=== PATIENT | female | born 2000 | race Caucasian/White ===

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

== ENCOUNTER → 2022-07-08 16:53 | Outpatient (CLI) | payer BC, SELFPAY ==
[2022-07-08 14:46] LABS: Coronavirus 19, PCR Not Detected (NotDetected); Influenza B, PCR Not Detected (NotDetected)
[2022-07-08 15:56] LABS: Influenza A, PCR Detected (NotDetected)
== END ==
PROVIDERS: PCP Student in an Organized Health Care Education/Training Program; Visit Provider Student in an Organized Health Care Education/Training Program
DX: R52 Pain, unspecified (principal); J09.X2 Influenza due to identified novel influenza A virus with other respiratory manifestations
CPT/HCPCS: C9803; U0003; U0005

== ENCOUNTER → 2023-08-19 08:55 | Outpatient (CLI) | payer BC, SELFPAY ==
[2023-08-20 10:05] LABS: Progesterone 4.6 ng/mL (.)
== END ==
PROVIDERS: PCP Physician Assistant; Visit Provider Obstetrics & Gynecology
DX: Z32.00 Encounter for pregnancy test, result unknown (principal)
CPT/HCPCS: 36415; 84144; 84702

== ENCOUNTER → 2023-08-24 07:01 | Outpatient (CLI) | payer BC, SELFPAY ==
[2023-08-24 22:56] LABS: Amphetamine/Metha Screen,Urine Negative ng/ml (<1000)
[2023-08-24 22:57] LABS: Barbiturates Screen,Urine Negative ng/ml (<200)
[2023-08-24 22:58] LABS: Benzodiazepines Screen,Urine Negative ng/ml (<200); Cannabinoid Screen,Urine Negative ng/ml (<50)
[2023-08-24 22:59] LABS: Cocaine Screen,Urine Negative ng/ml (<300)
[2023-08-24 23:00] LABS: Methadone Screen,Urine Negative ng/ml (<300); Opiate Screen,Urine Negative ng/ml (<300)
[2023-08-24 23:01] LABS: Phencyclidine Screen,Urine Negative ng/ml (<25)
[2023-08-30 00:02] LABS: Neisseria gonorrhoeae, NAA Negative (Negative)
== END ==
PROVIDERS: PCP Physician Assistant; Visit Provider Obstetrics & Gynecology
DX: Z34.91 Encounter for supervision of normal pregnancy, unspecified, first trimester (principal); Z3A.01 Less than 8 weeks gestation of pregnancy
CPT/HCPCS: 80307; 87086; 87491; 87591

== ENCOUNTER → 2023-08-30 15:07 | Outpatient (CLI) | payer BC, SELFPAY ==
[2023-08-30 15:29] LABS: Basophils # 0.1 K/mm3 (0-0.2); Basophils % 0.3 % (0.1-2.0); Eosinophils # 0.2 K/mm3 (0.0-0.4); Eosinophils % 1.3 % (0.1-12.0); Hematocrit 44.8 % (37.0-47.0); Hemoglobin 15.2 g/dL (12.2-16.2); Lymphocytes # 2.8 K/mm3 (0.7-4.5); Lymphocytes % 19.4 % (10-50); Mean Corpuscular Hemoglobin 29.6 pg (27.0-31.2); Mean Platelet Volume 8.9 fl (7.4-10.4); Monocytes # 0.6 K/mm3 (0.1-1.0); Neutrophils # 10.7 K/mm3 (1.8-7.8); Platelet Count 263 K/mm3 (142-424); Red Blood Count 5.15 M/mm3 (4.20-5.40); Red Cell Distribution Width 12.8 % (11.5-17.5); White Blood Count 14.3 K/mm3 (4.8-10.8)
[2023-09-01 09:48] LABS: Rapid Plasma Reagin Ab Titer Non Reactive titer (NonRea<1:1)
[2023-09-03 08:06] LABS: HIV Screen 4th Generation wRfx Non Reactive; Hepatitis B Surface Antigen Negative; Hepatitis C Antibody Non Reactive
== END ==
LOC: LAB 15:08
PROVIDERS: PCP Nurse Practitioner Family; Visit Provider Obstetrics & Gynecology
DX: Z34.91 Encounter for supervision of normal pregnancy, unspecified, first trimester (principal); Z3A.08 8 weeks gestation of pregnancy
CPT/HCPCS: 36415; 85025; 86593; 86703; 86762; 86850; 87340; 87380; G0432

== ENCOUNTER 2023-11-21 12:47 | Outpatient (CLI) | payer BC, SELFPAY ==
--- NOTE | 2023-11-21 12:47 | US_ITS ---
PROCEDURE: US OB /MATERNAL DETAIL CLINICAL INDICATION: 20 wk+Anatomy Scan-US OB Complete COMPARISON: No exams were available for comparison FINDINGS: Transabdominal sonographic images of the pelvis were obtained. From her established due date she is 20 weeks 1 day. Single viable intrauterine gestation. Cephalic position. Placenta: Posteriorplacenta grade 1. There is an average amount of fluid. The cervix appears satisfactory. Closed and measuring 3.2 cm in length. Complete survey performed and was unremarkable on the submitted images as in PACS. No discrete anomalies identified on survey imaging by technologist. Active fetus. Three-vessel cord with satisfactory umbilical cord insertion. 4- chamber heart noted. Situs, aortic arch, LVOT, RVOT, three-vessel view appear normal. Survey of brain & ventricles Unremarkable. Cerebellum, thalamus, choroid plexus, cisterna magna appear normal. Face and neck survey unremarkable. Profile, nasion, lips and nose appeared normal. Diaphragm and chest views unremarkable. Abdomen: Both kidneys noted and unremarkable. Stomach and bladder noted and satisfactory. Spine: Survey of the spine satisfactory with no anomalies identified nor imaged. Cervical, thoracic, lower spine appear normal. Both arms and legs noted. Amniotic Fluid: Adequate. Measurements: Average ultrasound age 20weeks 2days. Estimated due date by ultrasound age 0804/07/2024. Estimated weight 333g BPD = 20weeks 2days HC = 20weeks 1day AC = 20weeks 4days FL = 19weeks 5days Growth Percentile= 43 Heart Rate = 144bpm Cerebellum = 20weeks Humerus = 21weeks 1day HC/AC is 1.15 FL/AC is 0.2 IMPRESSION: 1. Viable fetus initially in the breech presentation then turned a cephalic. Placenta is anterior grade 1. 2. The fluid is within normal limits. 3. Anatomical scan appears normal. 4. Cardiac exam appears normal but would repeat in 2-4 weeks due to position. 5. biometry is consistent with dates. Dictated by: Greg Baeza MD 11/21/2023 16:52 Greg Baeza MD in [place] 11/21/2023 16:52
== END 2023-11-21 23:59 ==
LOC: RAD 12:47
PROVIDERS: PCP Nurse Practitioner Family; Visit Provider Obstetrics & Gynecology
DX: O26.892 Other specified pregnancy related conditions, second trimester (principal); Z3A.20 20 weeks gestation of pregnancy; R79.89 Other specified abnormal findings of blood chemistry; Z20.828 Contact with and (suspected) exposure to other viral communicable diseases
CPT/HCPCS: 76811

== ENCOUNTER 2023-12-19 12:44 | Outpatient (CLI) | payer BC, SELFPAY ==
--- NOTE | 2023-12-19 12:45 | US_ITS ---
PROCEDURE: US OB FOLLOW UP CLINICAL INDICATION: cardiac screening repeat due to position COMPARISON: US US OB /MATERNAL DETAIL from 11/21/2023 FINDINGS: Transabdominal sonographic images of the pelvis were obtained. The following parameters are obtained: From her established due date she is 24weeks 1day Viable fetus in the breech presentation with a posterior placenta grade 1. The cervix measures 3.76 cm. heart rate: 153bpm bpm. Amniotic fluid index: Appears normal. No obvious anomalies evident. stomach, three-vessel cord, four chamber heart, three-vessel view, RVOT, LVOT appear normal. IMPRESSION: 1. Viable fetus in the breech presentation with a posterior placenta grade 1. 2. The fluid is within normal limits. 3. cardiac anatomical scan appears normal. Dictated by: Greg Baeza MD 12/19/2023 16:36 Greg Baeza MD in [facility] 12/19/2023 16:36
== END 2023-12-19 23:59 | disposition home or self-care (01) ==
LOC: RAD 12:45
PROVIDERS: PCP Nurse Practitioner Family; Visit Provider Obstetrics & Gynecology
DX: O26.892 Other specified pregnancy related conditions, second trimester (principal); Z36.83 Encounter for fetal screening for congenital cardiac abnormalities; Z3A.24 24 weeks gestation of pregnancy
CPT/HCPCS: 76816

== ENCOUNTER 2024-01-08 13:09 | Outpatient (CLI) | payer BC, SELFPAY ==
[2024-01-08 13:38] LABS: Basophils # 0.1 K/mm3 (0-0.2); Basophils % 0.5 % (0.1-2.0); Eosinophils # 0.2 K/mm3 (0.0-0.4); Eosinophils % 1.4 % (0.1-12.0); Hematocrit 41.1 % (37.0-47.0); Hemoglobin 13.5 g/dL (12.2-16.2); Lymphocytes # 2.3 K/mm3 (0.7-4.5); Mean Corpuscular HGB Conc 32.8 g/dL (31.8-35.4); Mean Corpuscular Hemoglobin 28.7 pg (27.0-31.2); Mean Corpuscular Volume 87.4 fl (81-99); Mean Platelet Volume 8.9 fl (7.4-10.4); Monocytes # 0.6 K/mm3 (0.1-1.0); Monocytes % 4.3 % (1.7-9.3); Neutrophils # 10.4 K/mm3 (1.8-7.8); Neutrophils % 76.8 % (37.0-80.0); Platelet Count 280 K/mm3 (142-424); Red Cell Distribution Width 13.5 % (11.5-17.5); White Blood Count 13.5 K/mm3 (4.8-10.8)
[2024-01-08 13:46] LABS: Glucose,Fasting 96 mg/dl (74-100)
[2024-01-08 16:36] LABS: Glucose 1 Hour 109 mg/dL (74-100)
== END 2024-01-08 23:59 | disposition home or self-care (01) ==
LOC: LAB 13:10
PROVIDERS: PCP Nurse Practitioner Family; Visit Provider Obstetrics & Gynecology
DX: O26.892 Other specified pregnancy related conditions, second trimester (principal); Z3A.27 27 weeks gestation of pregnancy
CPT/HCPCS: 36415; 82951; 85025

== ENCOUNTER 2024-01-09 14:55 | Outpatient (CLI) | payer BC, SELFPAY ==
[2024-01-09] MEDS: RHO(D) IMMUNE GLOBULIN 1,500 UNIT SYRINGE IM (15:15)
[2024-01-09 15:18] VITALS: BP 135/78; PULSE 94; RESP 18; O2SAT 99
== END 2024-01-09 15:28 | disposition home or self-care (01) ==
LOC: INF 14:56
PROVIDERS: PCP Nurse Practitioner Family; Visit Provider Obstetrics & Gynecology
DX: O26.92 Pregnancy related conditions, unspecified, second trimester (principal); Z29.13 Encounter for prophylactic Rho(D) immune globulin; Z3A.27 27 weeks gestation of pregnancy
CPT/HCPCS: 96372; J2790

== ENCOUNTER 2024-01-30 12:54 | Outpatient (CLI) | payer BC, SELFPAY ==
--- NOTE | 2024-01-30 12:54 | US_ITS ---
PROCEDURE: US OB FOLLOW UP CLINICAL INDICATION: LGA COMPARISON: US US OB /MATERNAL DETAIL from 11/21/2023 US US OB FOLLOW UP from 12/19/2023 FINDINGS: Transabdominal sonographic images of the uterus were obtained. From her established due date she is 30weeks 1day. The following parameters are obtained: Viable Fetus in the cephalic presentation with a posterior placenta grade 1-2. Average ultrasound age is 31weeks 1day Estimated weight 1,624g, 3 lb 9 oz Cervix measures 4.3 cm. Measurements: heart Rate = 169bpm BPD = 31weeks 5days, 81 percentile HC = 31weeks 5days, 57 percentile AC = 30weeks 6days, 64 percentile FL = 30weeks 1day, 34 percentile HC/AC is 1.08 FL/BPD is 0.73 FL/AC is 0.22 57 percentile Amniotic fluid index: 8.77cm, MVP 3.63 cm. No obvious anomalies evident.Kidneys, stomach, bladder, four-chamber heart, three-vessel cord appear normal. IMPRESSION: 1. Viable fetus in the cephalic presentation with a posterior placenta grade 1-2. 2. The fluid is within normal limits with an amniotic fluid index of 8.77 cm, MVP 3.63 cm. 3. There has been good interval growth with the fetus currently 57th percentile. 4. Limited anatomical scan appears normal. Dictated by: Greg Baeza MD 01/30/2024 16:02 Greg Baeza MD in [place] 01/30/2024 16:02
== END 2024-01-30 23:59 | disposition home or self-care (01) ==
LOC: RAD 12:54
PROVIDERS: PCP Nurse Practitioner Family; Visit Provider Obstetrics & Gynecology
DX: O36.63X0 Maternal care for excessive fetal growth, third trimester, not applicable or unspecified (principal); Z3A.30 30 weeks gestation of pregnancy; E66.9 Obesity, unspecified
CPT/HCPCS: 76816

== ENCOUNTER 2024-02-02 16:37 | Emergency (ER) | payer BC, SELFPAY ==
[2024-02-02 16:55] VITALS: BP 133/82; PULSE 95; RESP 18; TEMP 37; O2SAT 100; BMI 39.6
--- NOTE | 2024-02-02 17:00 | EXP.UTC ---
Discharge Plan Disposition Patient Disposition: Home, Self-Care Condition: Good Prescriptions Prescriptions: New mupirocin 2 % ointment 1 applic topical TID 7 Days Qty: 15 0RF No Action Gummies 400 mcg-35 mg- 25 mg-5 mg tablet,chewable 1 tab PO DAILY aspirin [Adult Aspirin Regimen] 81 mg tablet,delayed release (DR/EC) 81 mg PO DAILY promethazine 12.5 mg tablet 12.5 mg PO Q6H PRN (Reason: nausea and vomiting) Qty: 20 1RF Referrals Follow up/Referrals: Ruddy Guzman APRN [Primary Care Provider] - See instructions Activity Restrictions/Add. Instructions Additional Instructions/Restrictions: Keep the affected area clean and dry. Follow up with your regular doctor. Apply the topical antibiotics as directed. Apply warm wet compresses to the affected area three or four times per day for the next few days. GO TO THE ER FOR ANY WORSENING SYMPTOMS Follow up with your primary care physician or your tie puller physician in a few days for the results of the lab work. Clinical Impressions Clinical Impression: Tick bite Instructions Patient Instructions: Protect Yourself from Tickborne Illnesses Discharge ED Provider: Orlando Sylvester [facility] [place] HPI General Stated complaint: 30 weeks ,tick bite Mode of Arrival: Ambulatory Source of Information: Patient Limitations: No Limitations Time Seen by Provider: 02/02/24 17:00 Description of Symptoms (Recalled from Triage Doc. by RN): Patient reports being 30 weeks and found a tick on her. States she wants to rule out lyme's disease. HEENT Symptoms (Recalled from RN notes): No Resp Symptoms (Recalled from RN notes): No Skin Symptoms (Recalled from RN notes): Yes MS Symptoms (Recalled from RN notes): No Functional Status (Recalled from RN notes): wnl Related Data Home Medications Medication Instructions Recorded Confirmed PNV 153-FA 400 mcg-om3 35 mg-dha 1 tab PO DAILY 08/24/23 01/30/24 25 mg-epa 5 mg-fish oil chew tablet ( Gummies) aspirin 81 mg tablet,delayed 81 mg PO DAILY 10/24/23 01/30/24 release (Adult Aspirin Regimen) Previous Rx's Medication Instructions Recorded promethazine 12.5 mg tablet 12.5 mg PO Q6H PRN nausea and 11/21/23 vomiting #20 tabs mupirocin 2 % topical ointment 1 applic topical TID 7 days #15 02/02/24 grams Allergies Allergy/AdvReac Type Severity Reaction Status Date / Time No Known Allergies Allergy Verified 01/30/24 14:40 Worker's Comp Is this a Worker's Comp case?: No [facility] Disclaimer: The information contained in this section may have been updated after the patient was seen, as this information can be updated by other users. Medical History Obesity (BMI 30-39.9) Low serum progesterone Surgical History No significant past surgical history Family History Grandfather Heart attack Social History Smoking Status: Never smoker alcohol intake: never substance use type: denies use current occupational status: employed and student Travel in the last 8 weeks: None household members: family housing: house ROS Obtained: Yes All systems reviewed & no additional complaints except as documented Constitutional Constitutional: Denies chills and Denies fever(s) Eyes Eyes: Denies eye discharge ENT Ears, Nose, Mouth, and Throat: Denies dizziness, Denies otalgia and Denies sore throat Cardiovascular Cardiovascular: Denies chest pain Respiratory Respiratory: Denies shortness of breath, Denies chest congestion, Denies cough, Denies stridor and Denies wheezing Gastrointestinal Gastrointestingal: Denies nausea or vomiting Musculoskeletal Musculoskeletal: Reports system reviewed and no additional complaints, except as documented and Denies arthralgias Integumentary/Breasts Skin/Breast: Denies rash Neurologic Neurologic: Denies dizziness and Denies paresthesias Allergic/Immunologic Allergic/Immunologic: Denies wheezing Physical Exam General General appearance: alert and in no apparent distress Head Head exam: atraumatic, normocephalic and normal inspection Eye Eye exam: Present normal appearance, PERRL and EOMI ENT ENT exam: Present normal exam, normal oropharynx, mucous membranes moist, TM's normal bilaterally and normal external ear exam Neck Neck exam: Present normal inspection, full ROM and trachea midline; Absent meningismus or lymphadenopathy Chest Chest inspection: Present normal inspection and symmetric chest wall rise; Absent tenderness Respiratory Respiratory exam: Present normal lung sounds bilaterally; Absent respiratory distress Cardiovascular Cardiovascular exam: Present regular rate and normal rhythm; Absent JVD Abdominal Exam Abdominal exam: Present soft and normal bowel sounds; Absent distention, tenderness or guarding Extremities Exam Extremities exam: Present normal inspection, full ROM and normal capillary refill; Absent calf tenderness Back Exam Back exam: Present normal inspection; Absent tenderness Neurological Exam Neurological exam: Present alert and oriented X3 Psychiatric Psychiatric exam: Present normal affect and normal mood Skin Skin exam: Present warm, dry, intact and normal color Lymphatic Lymphatic Findings: no adenopathy Medical Decision Making Medical Records Medical records reviewed: No I reviewed the patient's medical records. Benjamin Inquiry Pt receiving controlled substance: No Vital Signs: 02/02/24 16:55 Temperature 98.6 F Temperature Source Oral Pulse Rate [Radial] 95 H Respiratory Rate 18 Blood Pressure [Right Arm] 133/82 Blood Pressure Mean [Right Arm] 99 Blood Pressure Source [Right Arm] Automatic Cuff Blood Pressure Position [Right Arm] Sitting 02 Sat by Pulse Oximetry 100 Oxygen Delivery Method Room Air
[2024-02-02 18:15] VITALS: BP 133/82; PULSE 95; RESP 18; TEMP 37; O2SAT 100
[2024-02-04 10:08] LABS: Lyme Ab CIA Negative (Negative)
== END 2024-02-02 18:15 | disposition home or self-care (01) ==
PROVIDERS: Emergency Provider Nurse Practitioner Family; PCP Nurse Practitioner Family
DX: O26.893 Other specified pregnancy related conditions, third trimester (principal); W57.XXXA Bitten or stung by nonvenomous insect and other nonvenomous arthropods, initial encounter; Z3A.30 30 weeks gestation of pregnancy
CPT/HCPCS: 86618; 99203; 99212; G0463

== ENCOUNTER 2024-02-28 13:44 | Outpatient (CLI) | payer BC, SELFPAY ==
--- NOTE | 2024-02-28 13:45 | US_ITS ---
PROCEDURE: US OB BIOPHYSICAL PROFILE CLINICAL INDICATION: lga COMPARISON: US US OB /MATERNAL DETAIL from 11/21/2023 US US OB FOLLOW UP from 12/19/2023 US US OB FOLLOW UP from 01/30/2024 FINDINGS: Transabdominal sonographic images of the uterus were obtained. From her established due date she is 34weeks 2days. The following parameters are obtained: Viable Fetus in the cephalic presentation with a posterior placenta grade 2. Average ultrasound age is 35weeks 2days Estimated weight 2,463g The cervix measures 3.9 cm. Measurements: heart Rate = 158bpm BPD = 36weeks 2days, 93 percentile HC = 36weeks 0 days, 58 percent AC = 34weeks 2days, 52 percent FL = 34weeks 2days, 38 percentile HC/AC is 1.06 FL/BPD is 0.74 FL/AC is 0.22 53 percentile Amniotic fluid index: 11.29cm, MVP 3.59 cm. Qualitative AFV:2 Breathing movements: 2 Gross Body Movements: 2 Tone: 2 Biophysical profile score: 8 No obvious anomalies evident.Kidneys, stomach, bladder, four-chamber heart, three-vessel cord appear normal. IMPRESSION: 1. Viable fetus in the cephalic presentation with a posterior placenta grade 2. 2. The fluid is within normal limits with an amniotic fluid index of 11.29 cm, MVP 3.59 cm. 3. Biophysical profile is 8/8 with good breathing movement and movement seen. 4. There has been good interval growth with the fetus currently 53rd percentile. 5. Limited anatomical scan appears normal. Dictated by: Greg Baeza MD 02/28/2024 17:47 Greg Baeza MD in [place] 02/28/2024 17:47
== END 2024-02-28 23:59 | disposition home or self-care (01) ==
LOC: RAD 13:45
PROVIDERS: PCP Nurse Practitioner Family; Visit Provider Obstetrics & Gynecology
DX: O36.63X0 Maternal care for excessive fetal growth, third trimester, not applicable or unspecified (principal); Z3A.34 34 weeks gestation of pregnancy
CPT/HCPCS: 76816; 76819

== ENCOUNTER 2024-03-08 06:21 | Outpatient (CLI) | payer BC, SELFPAY ==
[2024-03-08] VITALS (22 sets, daily range): BP systolic 138–164; BP diastolic 70–97; PULSE 86; RESP 17; TEMP 36.6; O2SAT 100; BMI 41.3
[2024-03-08 07:48] LABS: Microscopic, Urine URINE MICROSCOPIC (MICROSCOPIC)
[2024-03-08 07:53] LABS: Appearance,Urine CLEAR (Clear); Bilirubin,Urine Negative (Negative); Blood, Urine Negative (Negative); Color,Urine YELLOW (Yellow); Glucose,Urine (UA) Negative (Negative); Ketones,Urine Negative (Negative); Leukocyte Esterase,Urine 2+ (Negative); Nitrate,Urine Negative (Negative); PH,Urine 6.5 (5.0-8.5); Protein,Urine Negative (Negative); Specific Gravity, Urine <= 1.005 (1.005-1.030); Urobilinogen,Urine 0.2 EU/dl (0.2)
[2024-03-08] MEDS: LABETALOL 100MG TABLET 200 MG PO (07:58)
[2024-03-08] MEDS: BETAMETHASONE ACET/PHOS 6MG/ML 5ML MDV 12 MG IM (07:58)
[2024-03-08] MEDS: ACETAMINOPHEN 500MG TAB 1000 MG PO (07:58)
[2024-03-08 08:05] LABS: Barbiturates Screen,Urine Negative ng/ml (<200); Benzodiazepines Screen,Urine Negative ng/ml (<200)
[2024-03-08 08:06] LABS: Amphetamine/Metha Screen,Urine Negative ng/ml (<1000); Cannabinoid Screen,Urine Negative ng/ml (<50)
[2024-03-08 08:07] LABS: Cocaine Screen,Urine Negative ng/ml (<300)
[2024-03-08 08:08] LABS: Methadone Screen,Urine Negative ng/ml (<300); Opiate Screen,Urine Negative ng/ml (<300)
[2024-03-08 08:09] LABS: Phencyclidine Screen,Urine Negative ng/ml (<25)
[2024-03-08 08:31] LABS: Creatinine,Urine Random 19 mg/dL (Not Estab.)
[2024-03-08 08:36] LABS: Basophils % 0.2 % (0.1-2.0); Eosinophils # 0.1 K/mm3 (0.0-0.4); Eosinophils % 0.7 % (0.1-12.0); Hematocrit 36.7 % (37.0-47.0); Hemoglobin 12.8 g/dL (12.2-16.2); Lymphocytes # 2.7 K/mm3 (0.7-4.5); Lymphocytes % 18.1 % (10-50); Mean Corpuscular Hemoglobin 29.5 pg (27.0-31.2); Mean Corpuscular Volume 84.4 fl (81-99); Mean Platelet Volume 10.4 fl (7.4-10.4); Monocytes # 0.7 K/mm3 (0.1-1.0); Monocytes % 4.9 % (1.7-9.3); Neutrophils # 11.1 K/mm3 (1.8-7.8); Platelet Count 263 K/mm3 (142-424); Red Blood Count 4.35 M/mm3 (4.20-5.40); Red Cell Distribution Width 14.3 % (11.5-17.5); White Blood Count 14.6 K/mm3 (4.8-10.8)
[2024-03-08 08:46] LABS: Bacteria,Urine Trace /lpf; Squamous Epithelial Cell,Urine 20-50 #/hpf (0-5)
[2024-03-08 09:01] LABS: Chloride 115 mmol/L (98-107); Potassium 3.7 mmoL/L (3.5-5.1); Sodium 138 mmol/L (136-145)
[2024-03-08 09:04] LABS: Alanine Aminotransferase 16 U/L (12-78); Albumin Level 3.3 g/dl (3.5-5.0); Alkaline Phosphatase 165 U/L (38-126); Anion Gap 8.7 mEq/L (5-15); Aspartate Amino Transferase 25 U/L (14-36); Bilirubin,Total 0.3 mg/dl (0.2-1.3); Blood Urea Nitrogen 7 mg/dl (7-17); Carbon Dioxide 18 mmol/L (22.0-30.0); Creatinine Clearance Estimated 170 mL/min (50-200); Estimated Glomerular Filt Rate 153 ml/min (>60); GFR (African American) 185 ML/MIN (>60); Globulin 3.3 g/dL (1.3-3.2); Total Protein,Serum 6.6 g/dl (6.3-8.2)
[2024-03-08 09:05] LABS: Calcium 9.1 mg/dl (8.4-10.2); Glucose 100 mg/dl (74-100)
[2024-03-08 09:55] LABS: Lactate Dehydrogenase 176 U/L (313-618); Uric Acid 4.7 mg/dl (2.5-6.2)
== END 2024-03-08 12:56 | disposition home or self-care (01) ==
LOC: OBOUT 06:23 → OB 06:23
PROVIDERS: PCP Nurse Practitioner Family; Visit Provider Obstetrics & Gynecology
DX: O16.3 Unspecified maternal hypertension, third trimester (principal); Z3A.35 35 weeks gestation of pregnancy; R51.9 Headache, unspecified
CPT/HCPCS: 36415; 80053; 80307; 81001; 82570; 83615; 84156; 84550; 85025; 87086; G0463; J0702

== ENCOUNTER → 2024-03-09 07:40 | Outpatient (CLI) | payer BC, SELFPAY ==
[2024-03-09 07:51] VITALS: BP 123/87; PULSE 95; RESP 16; TEMP 36.8; O2SAT 99
[2024-03-09] MEDS: BETAMETHASONE ACET/PHOS 6MG/ML 5ML MDV 12 MG IM (07:56)
[2024-03-09 08:00] VITALS: BP 123/87; PULSE 95; RESP 16; TEMP 36.8; O2SAT 99
[2024-03-09 08:19] VITALS: BMI 41.3
== END ==
LOC: OBOUT 07:42
PROVIDERS: PCP Nurse Practitioner Family; Visit Provider Obstetrics & Gynecology
DX: O14.93 Unspecified pre-eclampsia, third trimester (principal); Z3A.36 36 weeks gestation of pregnancy
CPT/HCPCS: 96372; J0702

== ENCOUNTER 2024-03-10 17:42 | Outpatient (CLI) | payer BC, SELFPAY ==
[2024-03-10 19:07] LABS: Total Protein 24 Hour,Urine 931 mg/24 hr (40-90); Total Volume,Urine 2450 mL (600-1600)
== END 2024-03-10 23:59 | disposition home or self-care (01) ==
LOC: LAB.DROPOF 17:43
PROVIDERS: PCP Obstetrics & Gynecology; Visit Provider Obstetrics & Gynecology
DX: O14.93 Unspecified pre-eclampsia, third trimester (principal)
CPT/HCPCS: 84155

== ENCOUNTER 2024-03-11 12:09 | Inpatient (IN) | payer BC, SELFPAY ==
[2024-03-11] VITALS (35 sets, daily range): BP systolic 141–174; BP diastolic 68–98; PULSE 68–89; RESP 12–18; TEMP 36.9–37.4; O2SAT 99–100; BMI 41.3
[2024-03-11 11:25] LABS: Microscopic, Urine URINE MICROSCOPIC (MICROSCOPIC)
[2024-03-11 11:26] LABS: Appearance,Urine CLEAR (Clear); Bilirubin,Urine Negative (Negative); Blood, Urine Negative (Negative); Color,Urine YELLOW (Yellow); Glucose,Urine (UA) Negative (Negative); Ketones,Urine Negative (Negative); Leukocyte Esterase,Urine Negative (Negative); Nitrate,Urine Negative (Negative); Protein,Urine TRACE (Negative); Urobilinogen,Urine 0.2 EU/dl (0.2)
[2024-03-11 11:35] LABS: Bacteria,Urine Trace /lpf; Squamous Epithelial Cell,Urine Occasional #/hpf (0-5)
--- NOTE | 2024-03-11 12:17 | P.CONPHA_ITS ---
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 -BRIAN CHAHALD
--- NOTE | 2024-03-11 12:17 | HMH.PHAINT1 ---
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 -BRIAN CHAHALD
[2024-03-11 12:31] LABS: Basophils % 0.2 % (0.1-2.0); Eosinophils # 0.1 K/mm3 (0.0-0.4); Eosinophils % 0.5 % (0.1-12.0); Hematocrit 34.7 % (37.0-47.0); Hemoglobin 11.5 g/dL (12.2-16.2); Lymphocytes # 1.9 K/mm3 (0.7-4.5); Lymphocytes % 10.2 % (10-50); Mean Corpuscular HGB Conc 33.2 g/dL (31.8-35.4); Mean Corpuscular Hemoglobin 28.8 pg (27.0-31.2); Mean Corpuscular Volume 86.7 fl (81-99); Mean Platelet Volume 10.5 fl (7.4-10.4); Monocytes # 1.3 K/mm3 (0.1-1.0); Monocytes % 6.6 % (1.7-9.3); Neutrophils # 15.6 K/mm3 (1.8-7.8); Neutrophils % 82.5 % (37.0-80.0); Platelet Count 212 K/mm3 (142-424); Red Blood Count 4.01 M/mm3 (4.20-5.40); Red Cell Distribution Width 14.3 % (11.5-17.5); White Blood Count 18.9 K/mm3 (4.8-10.8)
[2024-03-11 12:35] LABS: MANUAL DIFFERENTIAL MANUAL DIFFERENTIAL (MANUAL DIFF)
--- NOTE | 2024-03-11 12:36 | EXP.OB.APHP ---
OB - H&P: HPI Antepartum History of Present Illness Chief complaint: Irregular contractions History of present illness: Mrs. Ynes Fernandez is a 23 yo at 36w0d who presented to [facility] Labor and Delivery with complaint of intermittent contractions that started about [id number] last night, 03/10/24. Baby is active. She denies vaginal bleeding and leakage of fluid. She has had good care. She has history of HSV2 and genital condyloma. She was seen on L&D on 03/08/24, for headache and feeling like her blood pressure was elevated. She was started on Labetalol 200 mg TID. She has been taking baby Aspirin, 81mg, daily since 12 weeks gestation. PIH labs 03/08/24 within normal limits. 24 hour urine protein 03/10/24 was 924. She last took her Labetalol at 0530 this morning. She last ate at 0330 this morning. She reports intermittent headache since Monday. No headache this morning. No vision changes. She declines cervical exam. History of Present Criteria for establishing EDC:: LMP confirmed by 1st trimester US care: good care Ultrasounds: normal mid trimester US Obstetrical complications: preeclampsia Medical complications: none Labs Blood type: O (-) negative Rubella: immune RPR/VDRL: nonreactive GBS status: unknown HBsAG: negative [facility] Disclaimer: The information contained in this section may have been updated after the patient was seen, as this information can be updated by other users. Medical History (Updated 03/11/24 @ 13:14 by Kallie Medel DO) Maternal obesity affecting , antepartum 36 weeks gestation of Pre-eclampsia during in third trimester, antepartum Obesity (BMI 30-39.9) Low serum progesterone Surgical History No significant past surgical history Family History Grandfather Heart attack Social History Smoking Status: Never smoker alcohol intake: never substance use type: denies use current occupational status: employed Travel in the last 8 weeks: None household members: family housing: house Review of Systems Review of Systems Review of systems:: pertinent systems reviewed and negative unless documented below Constitutional Constitutional: Reports headache(s) ENT Ears, Nose, Mouth, and Throat: Reports headache(s) *Genitourinary Comments: + irregular contractions *Neurologic Neurologic: Reports headache(s) Meds Home Medications and Allergies Home Medications Medication Instructions Recorded Confirmed Type PNV 153-FA 400 mcg-om3 35 mg-dha 1 tab PO DAILY 08/24/23 03/11/24 History 25 mg-epa 5 mg-fish oil chew tablet ( Gummies) aspirin 81 mg tablet,delayed 81 mg PO DAILY 10/24/23 03/11/24 History release (Adult Aspirin Regimen) labetalol 200 mg tablet 200 mg PO TID #90 tabs 03/08/24 03/11/24 Rx promethazine 12.5 mg tablet 12.5 mg PO Q6HP PRN nausea and 03/11/24 03/11/24 History vomiting New Prescriptions to Start Prescriptions: Allergies Allergy/AdvReac Type Severity Reaction Status Date / Time No Known Allergies Allergy Verified 02/27/24 13:01 OB - H&P: Exam Physical Exam Vital signs: Temp Pulse Resp BP Pulse Ox O2 Del Method 98.8 F 75 18 160/93 H 99 Room Air 03/11/24 11:31 03/11/24 11:31 03/11/24 11:31 03/11/24 11:31 03/11/24 11:31 03/11/24 11:31 Constitutional no acute distress and cooperative Routine HEENT Exam Head: Present normocephalic and atraumatic Eye: Absent conjunctivae pink ENT: Present mucous membranes moist Routine Neck Exam Present full ROM Routine Respiratory Exam Present CTA bilaterally and normal respiratory effort Routine Cardiovascular Exam Present RRR Routine Abdominal Exam Present soft (Gravid); Absent tenderness Routine Rectal Exam Patient deferred: visual exam Routine Exam Patient deferred: external exam Routine Extremities Exam Present edema (+1 bilateral lower extremity edema) and full ROM; Absent calf tenderness Routine Neurological Exam Present alert and normal speech Routine Psychiatric Exam Present normal affect and cooperative Detailed Labor and Delivery Exam Baseline heart rate: 155 monitor accelerations: Present monitor decelerations: None manager intermediate variability: Minimal (3-5) Tachysystole: No OB - Results Labs Labs: Short CBC 03/11/24 Range/Units 12:15 WBC 18.9 H (4.8-10.8) K/mm3 Hgb 11.5 L (12.2-16.2) g/dL Hct 34.7 L (37.0-47.0) % Plt Count 212 (142-424) K/mm3 Urine 03/11/24 Range/Units 11:12 Urine Color Yellow (Yellow) Urine Appearance Clear (Clear) Urine pH 7.0 (5.0-8.5) Ur Specific [place] 1.010 (1.005-1.030) Urine Protein Trace (Negative) Urine Glucose (UA) Negative (Negative) OB - A/P Antepartum (1) Pre-eclampsia during in third trimester, antepartum: Status: Acute (2) 36 weeks gestation of : Status: Acute (3) Maternal obesity affecting , antepartum: Status: Acute (4) HSV-2 infection complicating : Status: Acute (5) Genital condyloma, female: Status: Acute Additional Plan Planning to breastfeed?: No Additional Information:: Admit to [facility] for preeclampsia with severe features and elective section delivery Mag sulfate 4 gm loading dose followed by 2 gm/hr maintenance PIH labs Continue Labetalol 200 mg TID for now. BP labile. Last BPP 157/77 Discussed elective primary in detail. Discussed risks, benefits, expectations and possible complications of surgery. All questions addressed and answered. She voiced understanding of risks and possible complications. Consent form signed. She last ate at 0330 this morning. She plans on formula feeding
[2024-03-11 12:40] LABS: Alanine Aminotransferase 53 U/L (12-78); Albumin Level 3.3 g/dl (3.5-5.0); Albumin/Globulin Ratio 1.1 (1.1-1.8); Alkaline Phosphatase 164 U/L (38-126); Anion Gap 7.6 mEq/L (5-15); Aspartate Amino Transferase 77 U/L (14-36); Bilirubin,Total 0.7 mg/dl (0.2-1.3); Blood Urea Nitrogen 10 mg/dl (7-17); Calcium 9.1 mg/dl (8.4-10.2); Carbon Dioxide 21 mmol/L (22.0-30.0); Chloride 113 mmol/L (98-107); Creatinine Clearance Estimated 170 mL/min (50-200); Estimated Glomerular Filt Rate 153 ml/min (>60); GFR (African American) 185 ML/MIN (>60); Globulin 3.1 g/dL (1.3-3.2); Glucose 82 mg/dl (74-100); Magnesium 1.5 mg/dl (1.6-2.3); Potassium 3.6 mmoL/L (3.5-5.1); Sodium 138 mmol/L (136-145); Total Protein,Serum 6.4 g/dl (6.3-8.2); Uric Acid 6.1 mg/dl (2.5-6.2)
[2024-03-11 12:41] LABS: Activated Partial Thrombo Time 26.7 seconds (22.8-30.6); Fibrinogen 366 mg/dL (229.9-363.5); INR 0.92 (0.9-1.1); Prothrombin Time 10.4 seconds (10.1-12.5)
[2024-03-11] MEDS: ONDANSETRON 4MG/2ML VIAL 4 MG IV (12:53)
[2024-03-11] MEDS: MAGNESIUM SULFATE IN WATER 4 GM/50 ML PIGGYBACK IV (12:55)
[2024-03-11] MEDS: LACTATED RINGERS 1000ML 1,000 ML 75 ML IV (12:57)
[2024-03-11 13:08] LABS: Lymphocytes % 16 % (10-50); Monocytes % 3 % (2-9); Neutrophils % 81 % (42-76); Platelet Estimate Normal; RBC Morphology Normal; Total Cells Counted 100
[2024-03-11] MEDS: MAGNESIUM SULFATE IN WATER 20 GM/500 ML IV.SOLN IV ×4 (13:18→23:05)
--- NOTE | 2024-03-11 15:57 | P.PNANES_ITS ---
[facility] Disclaimer: The information contained in this section may have been updated after the patient was seen, as this information can be updated by other users. Medical History Maternal obesity affecting , antepartum 36 weeks gestation of Pre-eclampsia during in third trimester, antepartum Obesity (BMI 30-39.9) Low serum progesterone Surgical History No significant past surgical history Family History Grandfather Heart attack Social History Smoking Status: Never smoker alcohol intake: never substance use type: denies use current occupational status: employed Travel in the last 8 weeks: None household members: family housing: house [facility] Anesthesia Checklist Patient Identification Patient Identification: Arm Band and Verbal (Name & ) Structural Data Admitted From: Inpatient Planned Operative Procedure/s: Primary C/S Consent for Planned Operative Procedure(s) Verified: Yes Verified Documents: Surgical Consent and History and Physical NPO Status Verified Time NPO: 03:30 Chart Verification Results Verified: CBC and BMP Additional verifications Patient : Yes Airway Assessment Mallampati Score:: Class II C-Spine Mobility Assessed: Yes TMJ Mobility Assessed: Yes Dentition: Good Dentition Neurological Assessment Level of Consciousness: Awake Hx Seizures: No Numbness or tingling in extremities: No Anesthesia Plan Anesthesia Risk discussed: Yes Anesthesia Plan: Verified ASA Class: III Anesthesia Type: Spinal
[2024-03-11] MEDS: CEFAZOLIN SODIUM 3 GM in 0.9 % SODIUM CHLORIDE 100 ML IV (16:41)
[2024-03-11 17:00] LABS: Cord Blood PH 7.31 (7.35-7.45)
--- NOTE | 2024-03-11 17:49 | P.PNANES_ITS ---
[facility] Anesthesia Record Part I Anesthesia Record I Intake, IV Amount: 1,000 Hydration: Adequate Estimated blood loss (mL): 600 Urine output (mL): 50 Blood Pressure: 164/98 SaO2: 100 Pulse Rate: 84 Airway Patency: Patent Respiratory Rate: 12 Temperature: 99.3 F Patient is:: Awake Stable to PACU at:: 17:45
[2024-03-11] MEDS: MEPERIDINE 25MG/ML 1ML SYRINGE 25 MG IV (18:01)
--- NOTE | 2024-03-11 18:02 | EXP.OP.NOTE ---
Date of procedure: 03/11/24 Pre-op Diagnosis:: 1. IUP at 36w0d 2. Preeclampsia with severe features 3. 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 Elective Post-op Diagnosis:: 1. IUP at 36w0d 2. Preeclampsia with severe features 3. 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 Elective Procedure performed:: Elective Primary Low Transverse Section Surgeon:: Kallie Medel DO Skill Training Program Coordinator(s):: Greg Baeza MD COMPETENCY EVALUATED NURSE AIDE:: Abhay Zarate Anesthesia: spinal Estimated blood loss (mL): 600 Clinical Note:: Mrs. Ynes Fernandez is a 23 yo at 36w0d who presented to [facility] Labor and Delivery with complaint of intermittent contractions that started about [id number] last night, 03/10/24. Baby is active. She denies vaginal bleeding and leakage of fluid. She has had good care. She has history of HSV2 and genital condyloma. She was seen on L&D on 03/08/24, for headache and feeling like her blood pressure was elevated. She was started on Labetalol 200 mg TID. She has been taking baby Aspirin, 81mg, daily since 12 weeks gestation. PIH labs 03/08/24 within normal limits. 24 hour urine protein 03/10/24 was 924. She last took her Labetalol at 0530 this morning. She reports intermittent headache since Monday. No vision changes. She received Celestone 03/08/24 and 03/09/24. She requests elective secondary to history of HSV-2. No current outbreaks. Operative findings:: 1. Live male baby, Primitivo, weighing 5 lb 6 oz. Apgars 7 (1 min), 9 (5 min) 2. Grossly normal appearing uterus, bilateral fallopian tubes and ovaries 3. Nuchal cord x 1 Operative note:: The risks, benefits and alternatives of the procedure were reviewed with the patient. Informed consent was obtained. Patient was taken to the operating room where spinal anesthesia was placed. The patient received 3 grams of Ancef preoperatively. Patient was placed in dorsal supine position with a leftward tilt. SCDs in place. Melendrez catheter had was inserted and draining clear urine prior to the start of the procedure. heart tones were obtained. Patient was then prepped and draped in normal sterile fashion. Allis clamp test was performed to ensure adequate anesthesia. A Pfannenstiel skin incision was made 2 cm above pubic symphysis. This was carried through to underlying layer of fascia. Fascia was incised in midline, extended laterally with Hoover scissors. Superior aspect of fascial incision was grasped with two Kym clamps, elevated up, and rectus muscle dissected off bluntly and sharply with Hoover scissors. Inferior aspect of fascial incision was grasped with two Kym clamps, elevated up, and rectus muscle dissected off bluntly and sharply with Hoover scissors. The retcus muscle was then in the midline and the peritoneum was entered bluntly with a digit. Peritoneal incision was then extended superiorly and inferiorly with good visualization of the bladder. Lam retractor was inserted. The lower uterine segment was incised in a transverse fashion. Clear amniotic fluid was noted. Head was delivered without difficulty. Nuchal x 1 was easily reduced. Remainder of body was delivered without difficulty. Mouth and nares were bulb suctioned. Spontaneous cry was noted. Delayed cord clamping was performed for 60 seconds. The umbilical cord was clamped and cut. The was handed to awaiting pediatric staff in stable condition. Dr. Funes was present. Apgars were 7(1 min), 9(5 min). Cord blood was obtained. Gentle traction on the umbilical cord and uterine fundal massage delivered the placenta. Placenta was intact. Placenta will be sent to pathology for review. Uterus was cleared of all clots and debris with a moist laparotomy sponge. Corners of the uterine incision were grasped with Allis clamps. The uterine incision was reapproximated with # 1 Vicryl suture in a running, locked stitch. Second layer of the same stitch was used to imbricate the incision. Vesicouterine peritoneum was reapproximated in a running locked stitch with 2-0 Vicryl suture. Hemostasis was noted. Posterior cul-de-sac was cleaned with moist laparotomy sponge. Gutters cleared of all clots and debris with a moist laparotomy sponge. Reinspection of the lower uterine segment demonstrated hemostasis. At this point all instruments and sponges were removed from the pelvis.? The peritoneum was grasped with Sarita clamps x 3. The peritoneum was reapproximated with 0 Vicryl suture in a running stitch. The corners of the fascia were grasped with Kym clamps, and the fascia was reapproximated with two # 1 Vicryl suture overlapped to the right of midline. Subcutaneous tissue was irrigated with clear return of fluids. The subcutaneous tissue was reapproximated with 3-0 Vicryl. The skin was reapproximated with Insorb shari. Telfa was placed over closed Pfannenstiel skin incision. At the end of the procedure, the uterus was firm with minimal vaginal bleeding. Patient tolerated the procedure well. Instrument, sponges and needle counts were correct x 2. Mom and baby were transported to recovery room in stable condition. Condition: stable Disposition: floor Specimens:: 1. Placenta and umbilical cord 2. Cord blood Complications:: None
[2024-03-11 18:52] LABS: Magnesium 3.8 mg/dl (1.6-2.3)
[2024-03-11] MEDS: LABETALOL 100MG TABLET 200 MG PO (18:56)
[2024-03-11 19:08] LABS: Creatinine,Urine Random 13 mg/dL (Not Estab.)
[2024-03-11 19:14] LABS: Amphetamine/Metha Screen,Urine Negative ng/ml (<1000); Barbiturates Screen,Urine Negative ng/ml (<200)
[2024-03-11 19:15] LABS: Benzodiazepines Screen,Urine Negative ng/ml (<200); Cannabinoid Screen,Urine Negative ng/ml (<50)
[2024-03-11 19:16] LABS: Cocaine Screen,Urine Negative ng/ml (<300)
[2024-03-11 19:17] LABS: Methadone Screen,Urine Negative ng/ml (<300); Opiate Screen,Urine Negative ng/ml (<300)
[2024-03-11 19:18] LABS: Phencyclidine Screen,Urine Negative ng/ml (<25)
[2024-03-11] MEDS: OXYTOCIN/RINGERS LACTATE 30 UNITS/500 ML BAG 40 UNITS IV (19:50)
[2024-03-11] MEDS: LABETALOL 5MG/ML 20ML MDV 20 MG IV (20:09)
[2024-03-11] MEDS: OXYCODONE 5MG IMMEDIATE RELEASE TABLET PO (20:37)
[2024-03-11] MEDS: ACETAMINOPHEN 500MG TAB 1000 MG PO (20:38)
[2024-03-11 21:21] LABS: Magnesium 4.2 mg/dl (1.6-2.3)
[2024-03-12] VITALS (19 sets, daily range): BP systolic 120–157; BP diastolic 58–88; PULSE 71–83; RESP 16–18; TEMP 36.7–37.4; O2SAT 98–100
[2024-03-12] MEDS: CEFAZOLIN SODIUM 2 GM in 0.9 % SODIUM CHLORIDE 100 ML IV ×2 (00:46→08:44)
[2024-03-12] MEDS: OXYCODONE 5MG IMMEDIATE RELEASE TABLET PO ×3 (00:47→15:14)
[2024-03-12] MEDS: LACTATED RINGERS 1000ML 1,000 ML 75 ML IV (01:20)
[2024-03-12] MEDS: LABETALOL 100MG TABLET 300 MG PO ×3 (03:02→19:18)
[2024-03-12] MEDS: ACETAMINOPHEN 500MG TAB 1000 MG PO ×3 (03:02→15:15)
[2024-03-12 06:59] LABS: Eosinophils # 0.1 K/mm3 (0.0-0.4); Eosinophils % 0.6 % (0.1-12.0); Hematocrit 30.2 % (37.0-47.0); Mean Corpuscular Volume 84.8 fl (81-99); Red Blood Count 3.56 M/mm3 (4.20-5.40); Red Cell Distribution Width 14.5 % (11.5-17.5)
[2024-03-12 07:06] LABS: Basophils # 0.1 K/mm3 (0-0.2); Basophils % 0.3 % (0.1-2.0); Lymphocytes # 1.9 K/mm3 (0.7-4.5); Lymphocytes % 12.7 % (10-50); Mean Corpuscular HGB Conc 33.7 g/dL (31.8-35.4); Mean Corpuscular Hemoglobin 28.6 pg (27.0-31.2); Mean Platelet Volume 9.3 fl (7.4-10.4); Monocytes # 0.9 K/mm3 (0.1-1.0); Neutrophils # 11.8 K/mm3 (1.8-7.8); Neutrophils % 80.4 % (37.0-80.0); Platelet Count 86 K/mm3 (142-424); White Blood Count 14.6 K/mm3 (4.8-10.8)
--- NOTE | 2024-03-12 07:13 | P.PNANES_ITS ---
[facility] Anesthesia Record Part II Anesthesia Record Part II Discharge Time: 18:15 Destination: Surgical Day Care (OP Surgery) PACU nurse assessment reviewed?: Yes Patient Condition:: Good Anesthesia Complications:: None Swallowing reflex intact?: Yes Airway Patency: Patent Cyanosis?: No Blood Pressure: 157/88 SaO2: 100 Respiratory Rate: 17 Pulse Rate: 72 Temperature: 99.3 F Mental Status: Alert & Oriented Pain level:: 0 Nausea and/or vomitting:: None Intake, IV Amount: 0 Hydration: Adequate
[2024-03-12 07:19] LABS: Hemoglobin 10.2 g/dL (12.2-16.2)
[2024-03-12 07:42] LABS: Magnesium 5.3 mg/dl (1.6-2.3)
[2024-03-12] MEDS: MAGNESIUM SULFATE IN WATER 20 GM/500 ML IV.SOLN IV (08:43)
[2024-03-12] MEDS: KETOROLAC 30MG/ML VIAL 30 MG IV ×2 (10:08→20:41)
[2024-03-12] MEDS: LACTATED RINGERS 1000ML 1,000 ML 125 ML IV (14:33)
[2024-03-12] MEDS: PRENATAL MULTIVITAMIN W/IRON 1 EACH PO (18:36)
--- NOTE | 2024-03-12 22:26 | EXP.PN ---
Subjective *Date: 03/12/24 *Time: 09:00 Interval history: Ynes Fernandez is a G1, P1 day #1 following a PLTCS at 36 weeks and 0 days gestation. was complicated by preeclampsia with severe features, maternal obesity, HSV-2, and genital condyloma. This morning she is on magnesium and will complete this around 5:00 tonight. She is fatigued and tired on the magnesium but otherwise doing well. She is doing well, sitting up in bed this morning. -Reports pain is well-controlled -Reports she is tolerating p.o. without nausea or vomiting. -Reports her lochia is scant. -Ambulating, voiding difficulty or dysuria. Denies chest pain shortness of breath or pain in her legs. No further complaints at this time. Exam Data for Last 24 hours Vital signs and Labs for Last 24 Hours: Temp Pulse Resp BP Pulse Ox O2 Del Method 98.0 F 71 18 139/71 100 Room Air 03/12/24 20:36 03/12/24 20:36 03/12/24 20:36 03/12/24 20:36 03/12/24 20:36 03/12/24 20:36 Laboratory Results - last 24 hr 03/12/24 06:28: WBC 14.6 H, RBC 3.56 L, Hgb 10.2 L D, Hct 30.2 L, MCV 84.8, MCH 28.6, MCHC 33.7, RDW 14.5, Plt Count 86 L D, MPV 9.3, Neut % (Auto) 80.4 H, Lymph % (Auto) 12.7, [place] % (Auto) 6.0, Eos % (Auto) 0.6, Baso % (Auto) 0.3, Neut # (Auto) 11.8 H, Lymph # (Auto) 1.9, [place] # (Auto) 0.9, Eos # (Auto) 0.1, Baso # (Auto) 0.1, Magnesium 5.3 H D I & O for Last 24 hours: Intake & Output 03/09/24 03/10/24 03/11/24 03/12/24 23:59 23:59 23:59 23:59 Intake Total 1000 / 1000 0 / 0 Output Total 3025 / 3025 1580 / 1580 Balance -2024 / -2024 -1580 / -1580 Weight 264 lb Narrative: General: patient is alert oriented in no acute distress and responds appropriately to questions. Appears to be in minimal pain. Sitting up and doing well HEENT: NCAT, EOMI, moist mucous membranes, neck supple with full ROM Cardiovascular: RRR +S1/S2, no murmurs or rubs Pulmonary: Clear to auscultation bilaterally, nonlabored breathing, symmetric chest rise Abdominal: Fundus at the umbilicus, firm, and tenderness appropriate for the period. Extremities: trace edema, no tenderness or cyanosis noted Skin: Normal turgor, intact, warm. Negative for erythema, pallor, petechia, or lesions Neurologic: Negative for sensory or motor deficit Psychiatric: Normal affect, normal thought process, good judgment and insight, no depression or anxious mood appreciated. Assessment and Plan *Assessment and plan (1) Maternal obesity affecting , antepartum: Status: Acute Category: Medical Code(s): O99.210 - Obesity complicating , unspecified trimester (2) 36 weeks gestation of : Status: Acute Category: Medical Code(s): Z3A.36 - 36 weeks gestation of (3) Pre-eclampsia during in third trimester, antepartum: Status: Acute Category: Medical Code(s): O14.93 - Unspecified pre-eclampsia, third trimester (4) Genital condyloma, female: Status: Acute Category: Medical Code(s): A63.0 - Anogenital (venereal) warts (5) HSV-2 infection complicating : Status: Acute Category: Medical Code(s): O98.519 - Other viral diseases complicating , unspecified trimester; B00.9 - Herpesviral infection, unspecified (6) Obesity (BMI 30-39.9): Status: Acute Category: Medical Code(s): E66.9 - Obesity, unspecified Plan Stable. POD#1 s/p primary low-transverse delivery -Doing well. VSS. Serial lochia and fundal checks. -Continue with perineal ice packs for discomfort -Bottle feeding, male infant -Desires circumcision -Contraception: undecided -Follow-up 2 weeks for routine visit -Dispo: home in 1-3 days pending mother/ status #Preeclampsia with severe features #Thrombocytopenia -Reviewed PIH labs within increasing uric acid which had previously went from 4.7 on 03/08/2020 4-6.1 on 03/11/2024. Reviewed AST which had increased from 25-77 in the same timeframe. ALT had increased from 16-50 during that timeframe. LDH is 176. Platelets had decreased from 212 on 03/11/2024 on the . -Repeat PIH labs ordered # anemia -Hemoglobin: 11.5--> 10.2. EBL: 600 mL - asymptomatic anemia noted. Vitals stable. Continue monitoring. DC with Fe -MCV appropriate likely secondary to dilution of , physiologic. Possibly also attributable to blood loss from surgery. #Rh- -O neg/antibody negative -RhoGAM studies ordered
[2024-03-13] MEDS: SIMETHICONE 80MG CHEWABLE TABLET 160 MG PO ×2 (00:39→07:48)
[2024-03-13] MEDS: ACETAMINOPHEN 500MG TAB 1000 MG PO ×4 (00:39→20:18)
[2024-03-13] MEDS: LABETALOL 100MG TABLET 300 MG PO ×3 (03:06→20:18)
[2024-03-13 04:40] VITALS: BP 124/62; PULSE 69; RESP 18; TEMP 36.7; O2SAT 99
[2024-03-13] MEDS: SENNA 8.6MG TABLET 8.6 MG PO (07:48)
[2024-03-13] MEDS: OXYCODONE 5MG IMMEDIATE RELEASE TABLET PO ×2 (07:48→14:47)
[2024-03-13] MEDS: KETOROLAC 30MG/ML VIAL 30 MG IV (07:49)
--- NOTE | 2024-03-13 16:35 | EXP.PN ---
Subjective *Date: 03/13/24 *Time: 16:35 Interval history: Ynes Fernandez is a G1, P1 day #2 following a PLTCS at 36 weeks and 0 days gestation. was complicated by preeclampsia with severe features, maternal obesity, HSV-2, and genital condyloma. She completed her magnesium yesterday and reports she is feeling much better after discontinuing that medication. She is doing well, sitting up in bed this morning and planning to get a shower. -Reports pain is well-controlled -Reports she is tolerating p.o. without nausea or vomiting. -Reports her lochia is scant. -Ambulating, voiding difficulty or dysuria. Denies chest pain shortness of breath or pain in her legs. No further complaints at this time. Exam Data for Last 24 hours Vital signs and Labs for Last 24 Hours: Temp Pulse Resp BP Pulse Ox O2 Del Method 98.1 F 69 18 124/62 99 Room Air 03/13/24 04:40 03/13/24 04:40 03/13/24 04:40 03/13/24 04:40 03/13/24 04:40 03/13/24 04:40 I & O for Last 24 hours: Intake & Output 03/10/24 03/11/24 03/12/24 03/13/24 23:59 23:59 23:59 23:59 Intake Total 1000 / 1000 0 / 0 Output Total 3025 / 3025 1580 / 1580 Balance -5 / -5 -1580 / -1580 Weight 264 lb Narrative: General: patient is alert oriented in no acute distress and responds appropriately to questions. Appears to be in minimal pain. Sitting up and doing well HEENT: NCAT, EOMI, moist mucous membranes, neck supple with full ROM Cardiovascular: RRR +S1/S2, no murmurs or rubs Pulmonary: Clear to auscultation bilaterally, nonlabored breathing, symmetric chest rise Abdominal: Fundus below the umbilicus, firm, and tenderness appropriate for the period. Extremities: trace edema, no tenderness or cyanosis noted Skin: Normal turgor, intact, warm. Negative for erythema, pallor, petechia, or lesions. Incision is covered in steri strips. There is a slight amount of blood at the apex but no changes from yesterday. No appreciable active bleeding. No signs of infection noted Neurologic: Negative for sensory or motor deficit Psychiatric: Normal affect, normal thought process, good judgment and insight, no depression or anxious mood appreciated. Assessment and Plan *Assessment and plan (1) Maternal obesity affecting , antepartum: Status: Acute Category: Medical Code(s): O99.210 - Obesity complicating , unspecified trimester (2) 36 weeks gestation of : Status: Acute Category: Medical Code(s): Z3A.36 - 36 weeks gestation of (3) Pre-eclampsia during in third trimester, antepartum: Status: Acute Category: Medical Code(s): O14.93 - Unspecified pre-eclampsia, third trimester (4) Genital condyloma, female: Status: Acute Category: Medical Code(s): A63.0 - Anogenital (venereal) warts (5) HSV-2 infection complicating : Status: Acute Category: Medical Code(s): O98.519 - Other viral diseases complicating , unspecified trimester; B00.9 - Herpesviral infection, unspecified (6) Obesity (BMI 30-39.9): Status: Acute Category: Medical Code(s): E66.9 - Obesity, unspecified Plan Stable. POD#2 s/p primary low-transverse delivery -Doing well. VSS. Serial lochia and fundal checks. -Continue with perineal ice packs for discomfort -Bottle feeding, male -Desires circumcision -Contraception: undecided -Follow-up 2 weeks for routine visit -Dispo: home tomorrow pending mother/infant status #Preeclampsia with severe features #Thrombocytopenia -Reviewed PIH labs within increasing uric acid which had previously went from 4.7 on 03/08/2020 4-6.1 on 03/11/2024. Reviewed AST which had increased from 25-77 in the same timeframe. ALT had increased from 16-50 during that timeframe. LDH is 176. Platelets had decreased from 212 on 03/11/2024 on the . -Pt was on Labetalol 200mg TID but at some point it was increased to 300mg TID. We will continue this dose and decrease at outpatient follow up. # anemia -Hemoglobin: 11.5--> 10.2. EBL: 600 mL - asymptomatic anemia noted. Vitals stable. Continue monitoring. DC with Fe -MCV appropriate likely secondary to dilution of , physiologic. Possibly also attributable to blood loss from surgery. #Rh- -O neg/antibody negative -Infant O neg as well.
[2024-03-13 17:01] LABS: Basophils % 0.2 % (0.1-2.0); Eosinophils # 0.1 K/mm3 (0.0-0.4); Eosinophils % 0.8 % (0.1-12.0); Hematocrit 27.5 % (37.0-47.0); Hemoglobin 9.1 g/dL (12.2-16.2); Lymphocytes # 2.4 K/mm3 (0.7-4.5); Lymphocytes % 14.7 % (10-50); Mean Corpuscular Hemoglobin 28.5 pg (27.0-31.2); Mean Corpuscular Volume 86.3 fl (81-99); Mean Platelet Volume 10.2 fl (7.4-10.4); Monocytes # 0.8 K/mm3 (0.1-1.0); Neutrophils % 79.3 % (37.0-80.0); Platelet Count 142 K/mm3 (142-424); Red Blood Count 3.18 M/mm3 (4.20-5.40); Red Cell Distribution Width 14.8 % (11.5-17.5); White Blood Count 16.3 K/mm3 (4.8-10.8)
[2024-03-13 17:05] LABS: MANUAL DIFFERENTIAL MANUAL DIFFERENTIAL (MANUAL DIFF)
[2024-03-13 17:11] LABS: Lactate Dehydrogenase 292 U/L (313-618)
[2024-03-13 17:12] LABS: Alanine Aminotransferase 45 U/L (12-78); Albumin Level 2.8 g/dl (3.5-5.0); Albumin/Globulin Ratio 0.9 (1.1-1.8); Alkaline Phosphatase 117 U/L (38-126); Anion Gap 5.2 mEq/L (5-15); Aspartate Amino Transferase 29 U/L (14-36); Bilirubin,Total 0.3 mg/dl (0.2-1.3); Blood Urea Nitrogen 20 mg/dl (7-17); Calcium 8.2 mg/dl (8.4-10.2); Carbon Dioxide 24 mmol/L (22.0-30.0); Chloride 111 mmol/L (98-107); Creatinine Clearance Estimated 142 mL/min (50-200); Estimated Glomerular Filt Rate 124 ml/min (>60); GFR (African American) 150 ML/MIN (>60); Glucose 94 mg/dl (74-100); Potassium 4.2 mmoL/L (3.5-5.1); Sodium 136 mmol/L (136-145); Total Protein,Serum 5.8 g/dl (6.3-8.2)
[2024-03-13 17:33] VITALS: BP 130/65; PULSE 79; RESP 18; TEMP 36.9; O2SAT 98
[2024-03-13 17:45] LABS: Lymphocytes % 19 % (10-50); Monocytes % 5 % (2-9); Neutrophils % 76 % (42-76); Platelet Estimate Slight Decrease; RBC Morphology Normal; Total Cells Counted 100
[2024-03-13 18:24] LABS: Uric Acid 7.1 mg/dl (2.5-6.2)
[2024-03-14] MEDS: ACETAMINOPHEN 500MG TAB 1000 MG PO ×2 (02:09→08:56)
[2024-03-14] MEDS: LABETALOL 100MG TABLET 300 MG PO ×2 (03:48→12:36)
[2024-03-14 07:28] VITALS: BP 147/84; PULSE 89; RESP 16; TEMP 36.9; O2SAT 99
--- NOTE | 2024-03-14 08:07 | P.DS_ITS ---
General Admission date:: 03/11/24 Discharge date: 03/14/24 HPI HPI HPI: Chief complaint: Irregular contractions History of present illness: Mrs. Ynes Fernandez is a 23 yo at 36w0d who presented to [facility] Labor and Delivery with complaint of intermittent contractions that started about 2200- 2300 last night, 03/10/24. Baby is active. She denies vaginal bleeding and leakage of fluid. She has had good care. She has history of HSV2 and genital condyloma. She was seen on L&D on 03/08/24, for headache and feeling like her blood pressure was elevated. She was started on Labetalol 200 mg TID. She has been taking baby Aspirin, 81mg, daily since 12 weeks gestation. PIH labs 03/08/24 within normal limits. 24 hour urine protein 03/10/24 was 924. She last took her Labetalol at 0530 this morning. She last ate at 0330 this morning. She reports intermittent headache since Monday. No headache this morning. No vision changes. She declines cervical exam. History of Present Criteria for establishing EDC:: LMP confirmed by 1st trimester US care: good care Ultrasounds: normal mid trimester US Obstetrical complications: preeclampsia Medical complications: none Labs Blood type: O (-) negative Rubella: immune RPR/VDRL: nonreactive GBS status: unknown HBsAG: negative Hospital Course Hospital Course Hospital Course: Ynes Fernandez is a G1, P1 day #3 following a PLTCS at 36 weeks and 0 days gestation. was complicated by preeclampsia with severe features, maternal obesity, HSV-2, and genital condyloma. She completed 24 hours of magnesium. This morning she reports she feels very anxious and has a headache. she thinks the headache is from anxiety and seeing the blood. She does report that it is worse with sitting up and walking around. Anesthesia evaluated and very low concern for spinal headache. She has had a significant decrease in her hgb we will give her venofer today prior to discharge. We will also give her hydroxyzine this morning to see if it provides relief. She took a shower ye -Reports pain is well-controlled -Reports she is tolerating p.o. without nausea or vomiting. -Reports her lochia is scant. -Ambulating, voiding difficulty or dysuria. Denies chest pain shortness of breath or pain in her legs. No further complaints at this time. Patient desires discharge home today. Routine discharge instructions reviewed with the patient and her spouse. All questions and concerns were addressed. Patient will follow-up in 1 week for blood pressure check or sooner if problems arise. She delivered a live viable male on 03/11/2024 at 1651. Infant weighed 5 p ounds 6 ounces. Apgars were 7/9 at 1 and 5 minutes respectively. Exam Data for Last 24 hours Vital signs and Labs for Last 24 Hours: Temp Pulse Resp BP Pulse Ox O2 Del Method 98.4 F 89 16 147/84 H 99 Room Air 03/14/24 07:28 03/14/24 07:28 03/14/24 07:28 03/14/24 07:28 03/14/24 07:28 03/14/24 07:28 Laboratory Results - last 24 hr 03/13/24 16:43: WBC 16.3 H, RBC 3.18 L, Hgb 9.1 L, Hct 27.5 L, MCV 86.3, MCH 28.5, MCHC 33.0, RDW 14.8, Plt Count 142 D, MPV 10.2, Neut % (Auto) 79.3, Lymph % (Auto) 14.7, Emmons % (Auto) 5.0, Eos % (Auto) 0.8, Baso % (Auto) 0.2, Neut # (Auto) 13.0 H, Lymph # (Auto) 2.4, Emmons # (Auto) 0.8, Eos # (Auto) 0.1, Baso # (Auto) 0.0, Total Counted 100, Neutrophils % (Manual) 76, Lymphocytes % (Manual) 19, Monocytes % (Manual) 5, Platelet Estimate Slight decrease, RBC Morphology Normal, Sodium 136, Potassium 4.2, Chloride 111 H, Carbon Dioxide 24, Anion Gap 5.2, BUN 20 H D, Creatinine 0.60, Estimated Creat Clear 142, Estimated GFR 124, Est GFR ( Amer) 150, Glucose 94, Uric Acid 7.1 H, Calcium 8.2 L, Total Bilirubin 0.3, AST 29 D, ALT 45, Alkaline Phosphatase 117, Lactate Dehydrogenase 292 L, Total Protein 5.8 L, Albumin 2.8 L, Globulin 3.0, Albumin/Globulin Ratio 0.9 L I & O for Last 24 hours: Intake & Output 03/11/24 03/12/24 03/13/24 03/14/24 23:59 23:59 23:59 23:59 Intake Total 1000 / 1000 0 / 0 Output Total 3025 / 3025 1580 / 1580 Balance -2024 / -2024 -1580 / -1580 Weight 264 lb Narrative: General: patient is alert oriented in no acute distress and responds appropriately to questions. Appears to be in minimal pain. Sitting up and doing well HEENT: NCAT, EOMI, moist mucous membranes, neck supple with full ROM Cardiovascular: RRR +S1/S2, no murmurs or rubs Pulmonary: Clear to auscultation bilaterally, nonlabored breathing, symmetric chest rise Abdominal: Fundus below the umbilicus, firm, and tenderness appropriate for the period. Extremities: trace edema, no tenderness or cyanosis noted Skin: Normal turgor, intact, warm. Negative for erythema, pallor, petechia, or lesions. Incision is partly covered in steri strips. It is clean and dry and healing very well. No appreciable bleeding. No signs of infection noted Neurologic: Negative for sensory or motor deficit Psychiatric: Normal affect, normal thought process, good judgment and insight, no depression or anxious mood appreciated. Results Data Completed and Pending Labs on day of discharge: Labs from last 24 hours 03/13/24 16:43 WBC 16.3 H RBC 3.18 L Hgb 9.1 L Hct 27.5 L MCV 86.3 MCH 28.5 MCHC 33.0 RDW 14.8 Plt Count 142 D MPV 10.2 Neut % (Auto) 79.3 Lymph % (Auto) 14.7 Emmons % (Auto) 5.0 Eos % (Auto) 0.8 Baso % (Auto) 0.2 Neut # (Auto) 13.0 H Lymph # (Auto) 2.4 Emmons # (Auto) 0.8 Eos # (Auto) 0.1 Baso # (Auto) 0.0 Total Counted 100 Neutrophils % (Manual) 76 Lymphocytes % (Manual) 19 Monocytes % (Manual) 5 Platelet Estimate Slight decrease RBC Morphology Normal Sodium 136 Potassium 4.2 Chloride 111 H Carbon Dioxide 24 Anion Gap 5.2 BUN 20 H D Creatinine 0.60 Estimated Creat Clear 142 Estimated GFR 124 Est GFR ( Amer) 150 Glucose 94 Uric Acid 7.1 H Calcium 8.2 L Total Bilirubin 0.3 AST 29 D ALT 45 Alkaline Phosphatase 117 Lactate Dehydrogenase 292 L Total Protein 5.8 L Albumin 2.8 L Globulin 3.0 Albumin/Globulin Ratio 0.9 L DS: Diagnosis Discharge Diagnosis (1) Maternal obesity affecting , antepartum: Status: Acute Code(s): O99.210 - Obesity complicating , unspecified trimester (2) 36 weeks gestation of : Status: Acute Code(s): Z3A.36 - 36 weeks gestation of (3) Pre-eclampsia during in third trimester, antepartum: Status: Acute Code(s): O14.93 - Unspecified pre-eclampsia, third trimester Problem details: Stable. POD#3 s/p primary low-transverse delivery -Doing well. VSS. Serial lochia and fundal checks. -Continue with perineal ice packs for discomfort -Bottle feeding, male -Desires circumcision -Contraception: undecided -Follow-up 1 weeks for routine visit and blood pressure check -Dispo: home today pending mother/infant status #Preeclampsia with severe features #Thrombocytopenia -Reviewed PIH labs within increasing uric acid which had previously went from 4.7 on 03/08/2020 4-6.1 on 03/11/2024. Reviewed AST which had increased from 25-77 in the same timeframe. ALT had increased from 16-50 during that timeframe. LDH is 176. Platelets had decreased from 212 on 03/11/2024 on the 9th. -On discharge. Labs are within normal limits and appropriate -Pt was on Labetalol 200mg TID but at some point it was increased to 300mg TID. We will continue this dose and decrease at outpatient follow up. # anemia -Hemoglobin: 11.5--> 10.2. EBL: 600 mL -On discharge hemoglobin further dropped to 9. IV Venofer was given. -Vitals stable. Continue monitoring. DC with Fe -MCV appropriate likely secondary to dilution of , physiologic. Possibly also attributable to blood loss from surgery. #Rh- -O neg/antibody negative -Infant O neg as well. (4) Genital condyloma, female: Status: Acute Code(s): A63.0 - Anogenital (venereal) warts (5) HSV-2 infection complicating : Status: Acute Code(s): O98.519 - Other viral diseases complicating , unspecified trimester; B00.9 - Herpesviral infection, unspecified (6) Obesity (BMI 30-39.9): Status: Acute Code(s): E66.9 - Obesity, unspecified Meds Home Medications and Allergies Home Medications Medication Instructions Recorded Confirmed Type PNV 153-FA 400 mcg-om3 35 mg-dha 1 tab PO DAILY 08/24/23 03/11/24 History 25 mg-epa 5 mg-fish oil chew tablet ( Gummies) acetaminophen 500 mg tablet 500 mg PO Q6H PRN fever #30 tabs 03/14/24 Rx ferrous sulfate 325 mg (65 mg 325 mg PO DAILY #30 tabs 03/14/24 Rx iron) tablet,delayed release ibuprofen 800 mg tablet 800 mg PO Q8H PRN pain #60 tabs 03/14/24 Rx labetalol 100 mg tablet 300 mg (3 x 100 mg) PO Q8H #90 tabs 03/14/24 Rx oxycodone 5 mg tablet 5 mg PO Q8H PRN pain #25 tabs 03/14/24 Rx sennosides 8.6 mg tablet (Senna 8.6 mg PO BIDP PRN Constipation 03/14/24 Rx Lax) #60 tabs simethicone 125 mg tablet 125 mg PO DAILY PRN abdominal 03/14/24 Rx distention #60 tabs New Prescriptions to Start Prescriptions: acetaminophen Suzanne Estrada ferrous sulfate Suzanne Estrada ibuprofen Suzanne Estrada labetalol Suzanne Estrada oxycodone Suzanne Estrada sennosides [Senna Lax] Suzanne Estrada simethicone Suzanne Estrada Allergies Allergy/AdvReac Type Severity Reaction Status Date / Time No Known Allergies Allergy Verified 02/27/24 13:01 Discharge Plan Disposition Patient Disposition: Home, Self-Care Discharge Order Discharge Orders: Discharge Order (Routine); Ordered 03/14/24 Ordered By: Suzanne Estrada Follow up Plan Follow up with: Suzanne Estrada DO [Staff Physician] - 1 week Prescriptions/Medication Reconciliation: New labetalol 100 mg Tablet 300 mg PO Q8H Qty: 90 1RF sennosides [Senna Lax] 8.6 mg Tablet 8.6 mg PO BIDP PRN (Reason: Constipation) Qty: 60 2RF ibuprofen 800 mg tablet 800 mg PO Q8H PRN (Reason: pain) Qty: 60 2RF acetaminophen 500 mg tablet 500 mg PO Q6H PRN (Reason: fever) Qty: 30 3RF simethicone 125 mg tablet 125 mg PO DAILY PRN (Reason: abdominal distention) Qty: 60 2RF ferrous sulfate 325 mg (65 mg iron) tablet,delayed release (DR/EC) 325 mg PO DAILY Qty: 30 3RF oxycodone 5 mg tablet 5 mg PO Q8H PRN (Reason: pain) Qty: 25 0RF Continued Gummies 400 mcg-35 mg- 25 mg-5 mg tablet,chewable 1 tab PO DAILY Discontinued aspirin [Adult Aspirin Regimen] 81 mg tablet,delayed release (DR/EC) 81 mg PO DAILY labetalol 200 mg tablet 200 mg PO TID Qty: 90 3RF promethazine 12.5 mg tablet 12.5 mg PO Q6HP PRN (Reason: nausea and vomiting) Problem Reconciliation Problems Reviewed?: Yes Patient Discharge Instructions ACTIVITY: Continue current activity DIET: regular diet Additional Instructions: Congratulations on the delivery of your sweet baby boy. It is my privilege to be your doctor and I am so thankful I could be a part of your special day. Discharge: 1. Take 800 mg Ibuprofen every 8 hours as needed for pain. You can also take 500-1000 mg of Tylenol in between doses, every 6-8 hours. Use prescription pain medicine for pain you feel in between 8 hour interval. -No driving while taking narcotic pain medications. In order to drive you should be able to slam on the brakes without significant abdominal pain. 2. Wean from prescription pain medicine first. Do not drive while taking it. 3. Prescription pain medicine can make you constipated. Colace can be taken 1-2 times per day as you need. Make sure to drink at least 8 cups of water per day. 4. Iron supplements can make you constipated. Colace can be taken 1-2 times per day as you need. You can take iron tablets every other day if constipation is too bad. 5. Nothing in the vagina for 6 weeks - no sex, douching, tampons. No tub baths 6. Do not lift greater than 15 pounds for 6 weeks, this is the equivalent of 2 gallons of milk. 7. Reasons to return to L&D or call On-Call doctor - fever (greater than 100.4) - heavy vaginal bleeding (soaking through 1 pad in less than 2 hours or passing clots that are egg sized) - vaginal discharge (malodorous and/or purulent) - bleeding or discharge from her incision - severe headaches, leg tenderness/edema, or any other symptoms that warrant immediate medical attention. 8. depression/blues - Normal to feel anxious/overwhelmed for first 2 weeks - Talk to your doctor if: anxiety lasts over 2 weeks, trouble bonding with baby, withdrawing from other family members, thoughts of harming yourself or others Blood pressure and preeclampsia instructions. Please continue your labetalol 300 mg 3 times a day until your follow-up visit 1. Please take your blood pressure twice daily. 2. Please call if greater than 2 values are higher than: 150 systolic (the top number) or 100 diastolic (the bottom number). 3. Please go to the emergency room or labor and delivery triage if any value is higher than: 160 systolic (the top number) or 110 diastolic (the bottom number). 4. Please call if unrelenting headache (does not go away with rest or Tylenol or ibuprofen), changes in vision (spots, floaters, flashes of light), chest pain, shortness of breath, or right upper quadrant (liver) abdominal pain. Suzanne Estrada DO [facility] [phone] *Nothing in the Vagina for 6 weeks* *No strenuous activity* *No heavy lifting* *No tub baths until okay's by MD* Providers Primary Care Provider: Ruddy Guzman Admit Provider: Kallie Medel Attending Provider: Kallie Medel
[2024-03-14] MEDS: IRON SUCROSE COMPLEX 200 MG in 0.9 % SODIUM CHLORIDE 100 ML 220 MG IV (08:56)
[2024-03-14] MEDS: IBUPROFEN 400 MG TABLET 800 MG PO (08:57)
[2024-03-14] MEDS: hydrOXYzine pamoate 25MG CAPSULE 50 MG PO (08:58)
[2024-03-14] MEDS: SENNA 8.6MG TABLET 8.6 MG PO (09:02)
== END 2024-03-14 14:30 | disposition home or self-care (01) | DRG 787 ==
LOC: OBOUT 12:09 → OB 12:09
PROVIDERS: Nurse Practitioner Obstetrics & Gynecology; Obstetrics & Gynecology; Admitting Provider Obstetrics & Gynecology; PCP Nurse Practitioner Family; Visit Provider Obstetrics & Gynecology
PROC: 10D00Z1 Extraction of Products of Conception, Low, Open Approach (ICD-10-PCS; CPT 59514; principal; 2024-03-11 16:30)
DX: O14.14 Severe pre-eclampsia complicating childbirth (principal); O98.52 Other viral diseases complicating childbirth; O99.214 Obesity complicating childbirth; Z3A.36 36 weeks gestation of pregnancy; Z37.0 Single live birth; O69.81X0 Labor and delivery complicated by cord around neck, without compression, not applicable or unspecified; Z3A.00 Weeks of gestation of pregnancy not specified; O90.81 Anemia of the puerperium; O72.3 Postpartum coagulation defects
CPT/HCPCS: 59514; 36415; 59025; 80053; 80307; 81001; 82570; 82800; 83615; 83735; 84156; 84550; 85007; 85025; 85384; 85610; 85730; 86850; 94761; C9290; G0283; J1756; J1885; J2175; J2405; J7120

== ENCOUNTER 2024-07-29 10:58 | Outpatient (CLI) | payer BC, SELFPAY ==
[2024-07-29 17:50] LABS: Coronavirus 19, PCR Not Detected (NotDetected); Influenza A, PCR Not Detected (NotDetected); Influenza B, PCR Not Detected (NotDetected)
== END 2024-07-29 23:59 | disposition home or self-care (01) ==
LOC: LAB.DROPOF 07-30 08:36
PROVIDERS: PCP Student in an Organized Health Care Education/Training Program; Visit Provider Student in an Organized Health Care Education/Training Program
DX: R09.81 Nasal congestion (principal)
CPT/HCPCS: 87070; 87636

== ENCOUNTER 2025-03-27 12:56 | Outpatient (CLI) | payer BC, SELFPAY ==
--- OUTSIDE RECORDS SUMMARY | 2025-03-31 13:05 | XMS_ITS | Clinical Summary ---
Author Organization [facility] Address [address] [place] [id number] Phone [email or web address] Care Team Providers Care Abalone Processor Name Role Phone Unavailable Primary Care Provider Unavailabl e Allergies No known active allergies Medications UNKNOWN TO PATIENT Oral Control ? Allergan Active Lo Loestrin Fe 1 MG-10 MCG / 10 MCG tablet 04/08/2021 Activ e Vit-Fe Fumarate-FA ( VITAMINS PO) Take by mouth. Active aspirin 81 MG chewable tablet Chew 81 mg 1 (one) time each day. Active escitalopram (LEXAPRO) 20 MG tablet Take 20 mg by mouth 1 (one) time each day. 05/14/2024 Active hydrOXYzine (ATARAX) 25 MG tablet Take 25 mg by mouth every night. 04/18/2024 Active Active Problems Problem Noted Date Diagnosed Date related condition in third trimester 0 02/29/2024 Return to work evaluation 07/31/2023 Vitamin D insufficiency 02/26/2019 Binge-eating disorder, mild 12/17/2018 Fatigue 12/17/2018 Social History Tobacco Use Types Packs/Day Years Used Date Smoking Tobacco: Never Smokeless Tobacco: Never Tobacco Cessation:Counseling Given: Not Answered Intimate Partner Violence Answer Date R ecorded Insults You Not on file 12/17/2020 Threatens You Not on file 12/17/2020 Screams at You Not on file 12/17/2020 Physically Hurt Not on file 12/17/2020 Intimate Partner Violence Score Not on file 12/17/2020 Depression Answer Date Recorded PHQ Total Score 0 02/05/2024 Stress Answer Date Recorded Stress in your Life Not on file 07/10/2024 Dealing with Stress 3 07/10/2024 Comments Unknown Sex and Gender Information Value Date Recorded Sex Assigned at Not on file Legal Sex Female 11:18 AM CDT Gender Identity Not on file Sexual Orientation Not on file Last Filed Vital Signs Vital Sign Reading Time Taken Comments Blood Pressure 136/90 02/29/2024 4:39 PM EDT Pulse 93 02/29/2024 4:39 PM EDT Temperature 36.9 C (98.4 F) 02/19/2019 5:50 AM EDT Respiratory Rate 18 02/29/2024 4:39 PM EDT Oxygen Saturation 98% 02/29/2024 4:39 PM EDT Inhaled Oxygen Concentration - - Weight 96.6 kg (213 lb) 02/19/2019 5:50 AM EDT Height 170.2 cm (5' 7 ) 02/19/2019 5:50 AM EDT Body Mass Index 33.36 02/19/2019 5:50 AM EDT Plan of Treatment Health Maintenance Due Date Last Done Comments Dental Cleaning/Exam 2000 HIV Screening 2000 Hepatitis C Screening 2000 Polio Immunization (4 of 4 - 4-dose series) 2004 07/14/2001, 05/10/2001, 02/16/2001 Cervical Cancer Screening 2016 HPV Immunization (2 - 3-dose series) 01/05/2018 12/08/2017 Hep B Infection Screening - Triple Screen 2018 Tetanus Diphtheria and Pertussis Immunization (4 - Tdap) 12/13/2019 07/14/2001, 05/10/2001, 02/16/2001 Annual Preventive Exam 02/20/2020 02/19/2019 Covid-19 Immunization ( season) 2024 Influenza Immunization (#1) 2025 Hepatitis B Immunization Completed 001, 02/16/2001, 2000 HIB Immunization Aged Out 11/24/2001, 05/10/2001, 02/16/2001 No longer eligible based on patient's age to complete this topic Meningococcal Immunization Completed 12/08/2017 Varicella Immunization Aged Out 12/08/2017 No lo nger eligible based on patient's age to complete this topic Hepatitis A Immunization Completed 019, 12/08/2017 Men B Immunization Aged Out No longer eligible based on patient's age to complete this topic Pneumococcal: Ped (0 to 5 Yr s) and At-Risk Member (6 to 64 Yrs) Aged Out No longer eligible b ased on patient's age to complete this topic Insurance OPT OUT NO COPAY NB
--- OUTSIDE RECORDS SUMMARY | 2025-03-31 13:05 | XMS_ITS | Clinical Summary ---
Author Organization [facility] Address [address] [place] [address] Care Team Providers Care Director E Learning Name Role Phone Pcp, No Primary Care Provider Unavailabl e Allergies No known active allergies Medications Norethin Abdiaziz-Eth Estrad-FE (BLISOVI FE 09/23 PO) Take by mouth. Active drospirenone-ethin yl estradiol (Ocella) 3-0.03 MG tabletIndications: Encounter for surveillance of contraceptive pills Take 1 tablet by mouth 1 (one) time each day. 84 tablet 4 3 Active Active Problems Problem Noted Date Diagnosed Date control counseling 09/21/2022 Smear, vaginal, as part of r outine gynecological examination 09/21/2022 Encounter for surveillance of contraceptive pill s 10/06/2021 Assessment & Plan (09/21/2022 1:57 PM EST): Ynes Fernandez is a 21yo G0 here today for control refill and pap smear. Ynes wishes to continue her current control for the near future. She did want to discuss how soon she would be able to get if she stopped her control, as her and her wish to possibly conceive this summer. Counseling was provided regarding family planning and conception as well as information about work restrictions with possible . #Contraceptive management and conception counseling -Counseling provided regarding how stopping control pills would affect conception -Counseling provided on how would require work restrictions with recommendation to come back to clinic for more information when - rec to start taking PNV 3 months before TTC #Pap smear screening -Results will be shared with patient when received by office Electronically Signed by: MADISON Barahona - 09/21/2022 - 1:49 PM Assessment & Plan (10/06/2021 3:13 PM EST): - would like to try different OCP - one that helps with acne - Ocella Rx sent - G/C testing today - declines Gardasil vaccines - RTC at 21yo for pap Vitamin D insufficiency 02/26/2019 Binge-eating disorder, mild 12/17/2018 Fatigue 12/17/2018 Immunizations Immunization Administration Dates Next Due DTaP 07/14/2001,05/10/2001,02/16/2001 HPV 9-Valent 12/08/2017 Hep A, ped/adol, 2 dose 12/08/2017 Hep B, Adolescent or Pediatric 07/14/2001,2000,2000 Hib (PRP-T) 11/24/2001,05/10/2001,02/16/2001 IPV 07/14/2001,05/10/2001,02/16/2001 MMR 12/19/2005 Meningococcal MCV4P 12/08/2017 Varicella 12/08/2017 Social History Tobacco Use Types Packs/Day Years Used Date Smoking Tobacco: Never Smokeless Tobacco: Never Alcohol Use Standard Drinks/Week Comments Never 0 (1 standard drink = 0.6 oz pur e alcohol) Comments Unknown Sex and Gender Information Value Date Recorded Sex Assigned at Not on file Legal Sex Female 3:02 PM EST Gender Identity Not on file Sexual Orientation Not on file Last Filed Vital Signs Vital Sign Reading Time Taken Comments Blood Pressure 132/74 09/21/2022 1:11 PM EST Pulse 89 10/06/2021 2:53 PM EST Temperature - - Respiratory Rate - - Oxygen Saturation - - Inhaled Oxygen Concentration - - Weight 109 kg (241 lb) 09/21/2022 1:11 PM EST Height 170.2 cm (5' 7 ) 09/21/2022 1:11 PM EST Body Mass Index 37.75 09/21/2022 1:11 PM EST Plan of Treatment Health Maintenance Due Date Last Done Comments [facility]-Depression Screening 2000 [facility]-Infant/Child/Adol SDOH Screenings 2000 [facility]-IPV Vaccines (4 of 4 - 4-dose series) 2004 07/14/2001, 05/10/2001, 02/16/2001 HPV Vaccines (2 - 3-dose series) 01/05/2018 12/08/2017 [facility]-Varicella Vaccines (2 of 2 - 13+ 2-dose series) 01/05/2018 12/08/2017 [facility]-Hepatitis A Vaccines (2 of 2 - 2-dose series) 06/09/2018 12/08/2017 [facility]- SDOH Screenings 2018 [facility]-Adult SDOH Screenings 2018 [facility]-DTaP,Tdap,and Td Vaccines (4 - Tdap) 12/13/2019 07/14/2001, 05/10/2001, 02/16/2001 [id number] Vaccine ( - 2023- season) 2024 [facility]-Influenza Vaccine (#1) 2025 [facility]-Pap Smear 09/21/2025 09/21/2022 [facility]Y-Zoster Vaccines (1 of 2) 2050 12/08/2017 [facility]-Hepatitis B Vaccines Completed 001, 02/16/2001, 2000 [facility]-HIB Vaccines Aged Out 11/24/2001, 05/10/2001, 02/16/2001 No longer eligible based on patient's age to complete this topic [facility]Y-Pneumococcal Vaccine: Pediatrics (0 to 5 Years) and At-Risk Patients (6 to 49 Years) Aged Out No longer eligible b ased on patient's age to complete this topic [facility]-Rotavirus Vaccines Aged Out No lo nger eligible based on patient's age to complete this topic Procedures Procedure Name Priority Date/Time Associated Diagnosis Comments PAP TEST - CYTOLOGY Routine 09/21/2022 1:30 PM EST Encounter for surveillance of contraceptive pills from Last 3 Months or Most Recently Relevant to Health Maintenance Results * Pap Test (09/21/2022 1:30 PM EST) Case Report Cytology Case: [id number] Authorizing Provider: Elda Dixon MD Collected: 09/21/2022 1330 Ordering Location: Obstetrics & Gynecology Received: 09/22/2022 0911 First Screen: Hailee Harris Specimen: ThinPrep Pap Test, Liquid-Based Cervical/Vaginal, CERVICAL/VAGINAL 09/26/2022 12:29 PM EST [facility] Interpretation NEGATIVE FOR INTRAEPITHELIAL LESION OR MALIGNANCY 09/26/2022 12:29 PM EST [facility] at 1229 EST Specimen Adequacy Satisfactory for evaluation; endocervical/bashir sformation zone component present. Slide scanned and imaged by [employer] Imaging System with manual review of all selected ulloa. 09/26/2022 12:29 PM EST [facility] Cervical cytology is a screening test primarily for squamous cancers and precursors and has associated false negative and positive results. New technologies such as liquid based sampling may decrease but will not eliminate all false negative results. Regular screening and follow-up of unexplained clinical signs and symptoms are recommended to minimize false negative results. Please see the ASCCP website (www.asccp.org)fo r followup recommendations. If HPV testing was requested, correlation with the results is suggested (please call Microbiology at [phone] for results). 09/26/2022 12:29 PM EST [facility] Menstrual Status Cyclic 09/26/19 12:29 PM EST [facility] History of Hysterectomy Not Applicable 09/26/2022 12:29 PM EST [facility] Contraceptive History control pills 09/26/2022 12:29 PM EST [facility] Screening Type Routine Screen 2022 12:29 PM EST [facility] High Risk? No 09/26/2022 12:29 PM EST [facility] HPV Testing Requested? Request HPV testing if ASCUS or LSIL. 09/26/2022 12:29 PM EST [facility] Previous Cancer History No 09/26/2022 12:29 PM EST [facility] Clinical Information Z30.41 - Encounter for surveillance of contraceptive pills [ICD-10-CM] 09/26/2022 12:29 PM EST [facility] Last Menstrual Period 09/21/2022 09/26/2022 12:29 PM EST [facility] Swab Vaginal and cervical cytologic material / Unknown Non-blood Collection / Unknown 09/21/2022 1:30 PM EST 09/22/2022 9:11 AM EST us Elda iDxon MD LAB CYTOLOGY ORDERABLES Final Result [facility] [address] [place] [address] from Last 3 Months or Most Recently Relevant to Health Maintenance Insurance Care Teams Director E Learning Relationship Specialty Start Date End Date Pcp, No [address] [place] [address] PCP - General Family Medicine 10/06/21
--- OUTSIDE RECORDS SUMMARY | 2025-03-31 13:05 | XMS_ITS | Clinical Summary ---
Author Organization [facility] yste Address [address] [place] [address] Care Team Providers Care Wind Turbine Technician Name Role Phone Ruddy Guzman SHARIFA Primary Care Provider + [phone] Allergies No known active allergies Medications Chromium (CHROMIUM GTF) 200 MCG tabletIndication s:Obesity, Class II, BMI 35-39.9 Take 1 tablet by mouth 2 (Two) Times a Day With Meals. 9 Active spironolactone (ALDACTONE) 50 MG tablet 0 9 Active Nwpysh-P43-Oftlq nsic Factor (INTRINSI T20-KYFZLE) 800-500-20 MCG-MCG-MG tabletIndication s:Fatigue, unspecified type Take 1 tablet/day by mouth Daily. 30 each 9 Active Cholecalciferol (VITAMIN D-3) 125 MCG (5000 UT) tabletIndication s:Obesity, Class I, BMI 30-34.9 Take 1 tablet by mouth Daily. 30 tablet 2 9 Active topiramate (TOPAMAX) 25 MG tabletIndication s:Obesity, Class I, BMI 30-34.9 Take one daily at bedtime for a week then increase to 2 daily at bedtime 60 tablet 2 9 Active phentermine (ADIPEX-P) 37.5 MG tabletIndication s:Obesity, Class I, BMI 30-34.9 Take 1/2 tablet at 11am and 1/2 tablet at 3pm. 30 tablet 0 Active Active Problems Problem Noted Date Diagnosed Date Vitamin D insufficiency 02/26/2019 Fatigue 12/17/2018 Binge-eating disorder, mild 12/17/2018 Family History Medical History Relation Name Comments Diabetes Father Heart disease Maternal Grandfather Hypothyroidism Maternal Grandmother Hypothyroidism Mother Obesity Mother Relation Name Status Comments Father Maternal Grandfather Maternal Grandmother Mother Social History Tobacco Use Types Packs/Day Years Used Date Smoking Tobacco: Never Smokeless Tobacco: Never Alcohol Use Standard Drinks/Week Comments No 0 (1 standard drink = 0.6 oz pur e alcohol) AUDIT-C Answer Date Recorded Frequency of Alcohol Consumption Never 12/17/2018 Average Number of Drinks Not on file 019 Frequency of Binge Drinking Not on file 12/03 Abuse Screen Answer Date Recorded Unsafe at Home or Work/School Not on file Feels Threatened by Someone? Not on file 05/2023 Does Anyone Keep You from Co ntacting Others or Doint Things Outside the Home? Not on file 06/12/2023 Physical Sign of Abuse Present Not on file 1 Housing Stability Answer Date Recorded Current Living Arrangements Not on file 05/2023 Potentially Unsafe Housing Conditions Not on bridgett e 06/12/2023 Family and Community Support Answer Baudilio e Recorded Help with Day-to-Day Activities Not on file 06/12/2023 Lonely or Isolated Not on file 06/12/2023 Employment Answer Date Recorded Do you want help finding or keeping work or a césar b? Not on file 06/12/2023 Disabilities Answer Date Recorded Concentrating, Remembering, or Making Decisions Difficulty Not on file 06/12/2023 Doing Errands Independently Difficulty Not on fi le 06/12/2023 Education Answer Date Recorded Help with school or training? Not on file Preferred Language Not on file 06/12/2023 Comments No Sex and Gender Information Value Date Recorded Sex Assigned at Not on file Legal Sex Female 11:42 AM EDT Gender Identity Not on file Sexual Orientation Not on file Last Filed Vital Signs Vital Sign Reading Time Taken Comments Blood Pressure 104/68 07/23/2019 1:01 PM EST Pulse 74 07/23/2019 1:01 PM EST Temperature - - Respiratory Rate - - Oxygen Saturation - - Inhaled Oxygen Concentration - - Weight 93.4 kg (206 lb) 07/23/2019 1:01 PM EST Height 171.5 cm (5' 7.5 ) 07/23/2019 1:01 PM EST Body Mass Index 31.79 07/23/2019 1:01 PM EST Plan of Treatment Health Maintenance Due Date Last Done Comments Annual Gynecologic Pelvic an d Breast Exam 2000 HPV VACCINES (1 - 3-dose series) 12/13/2015 ANNUAL PHYSICAL 12/17/2018 HEPATITIS C SCREENING 12/17/2018 TDAP/TD VACCINES (1 - Tdap) 12/13/2019 COVID-19 Vaccine ( - 2023-2 5 season) 2024 INFLUENZA VACCINE 06/04/2025 MENINGOCOCCAL B VACCINE Aged Out No l onger eligible based on patient's age to complete this topic Pneumococcal Vaccine 0-49 Aged Out No longer eligible based on patient's age to complete this topic Insurance [address] [employer] [facility] PPO [facility] [address] [employer] [facility] PPO Member Subscriber Plan / Payer (Ef fective 2017-Present) Name:Ynes PARSONS Relation to Subscriber:Child Name:ISABELLA HAHN Date of :1968 Address: [facility] [place] [address] Payer ID:[id number] (NAIC) Type:Not on file Address: [address] [place] [id number] Care Teams Wind Turbine Technician Relationship Specialty Start Date End Date Ruddy Guzman APRN [address] [place] [address] PCP - General Family Medicine 11/21/18
== END 2025-03-27 23:59 | disposition home or self-care (01) ==
LOC: LAB.DROPOF 03-31 12:57
PROVIDERS: PCP Nurse Practitioner Family; Visit Provider Obstetrics & Gynecology
DX: R31.9 Hematuria, unspecified (principal); R39.9 Unspecified symptoms and signs involving the genitourinary system
CPT/HCPCS: 87086; 87088; 87186

== ENCOUNTER 2025-04-10 14:15 | Outpatient (CLI) | payer BC, SELFPAY ==
--- OUTSIDE RECORDS SUMMARY | 2025-04-11 10:38 | XMS_ITS | Clinical Summary ---
Author Organization [facility] Address [address] [place] [address] Care Team Providers Care Laboratory Animal Facility Supervisor Name Role Phone Pcp, No Primary Care [...] (4 - Tdap) 12/13/2019 07/14/2001, 05/10/2001, 02/16/2001 [id number] Vaccine ( - 2023- season) 2024 [facility]-Influenza [...] 1:30 PM EST) Case Report Cytology Case: [id number] Authorizing Provider: Elda Dixon MD Collected: 09/21/2022 1330 Ordering Location: Obstetrics & Gynecology Received: 09/22/2022 0911 First Screen: Hailee Harris Specimen: ThinPrep Pap Test, Liquid-Based Cervical/Vaginal, CERVICAL/VAGINAL 09/26/2022 12:29 PM EST [facility] Interpretation NEGATIVE FOR INTRAEPITHELIAL LESION OR MALIGNANCY 09/26/2022 12:29 PM EST [facility] at 1229 EST Specimen Adequacy Satisfactory for evaluation; endocervical/bashir sformation zone component present. Slide scanned and imaged by [employer] Imaging System with manual review of all selected ulloa. 09/26/2022 12:29 PM EST [facility] Cervical cytology is a screening [...] results is suggested (please call Microbiology at [phone] for results). 09/26/2022 12:29 PM EST [facility] Menstrual Status Cyclic 09/26/19 12:29 PM EST [facility] History of Hysterectomy Not Applicable 09/26/2022 12:29 PM EST [facility] Contraceptive History control pills 09/26/2022 12:29 PM EST [facility] Screening Type Routine Screen 2022 12:29 PM EST [facility] High Risk? No 09/26/2022 12:29 PM EST [facility] HPV Testing Requested? Request HPV testing if ASCUS or LSIL. 09/26/2022 12:29 PM EST [facility] Previous Cancer History No 09/26/2022 12:29 PM EST [facility] Clinical Information Z30.41 - Encounter for surveillance of contraceptive pills [ICD-10-CM] 09/26/2022 12:29 PM EST [facility] Last Menstrual Period 09/21/2022 09/26/2022 12:29 PM EST [facility] Swab Vaginal and cervical cytologic material / Unknown Non-blood Collection / Unknown 09/21/2022 1:30 PM EST 09/22/2022 9:11 AM EST us Elda Dixon MD LAB CYTOLOGY ORDERABLES Final Result [facility] [address] [place] [address] from Last 3 Months or Most Recently Relevant to Health Maintenance Insurance [address] Care Teams Laboratory Animal Facility Supervisor Relationship Specialty Start Date End Date Pcp, No [address] [place] [address] PCP - General Family Medicine 10/06/21
--- OUTSIDE RECORDS SUMMARY | 2025-04-11 10:38 | XMS_ITS | Clinical Summary ---
Author Organization [facility] yste Address [address] [place] [address] Care Team Providers Care Head Stock Operator Name Role Phone Ruddy Guzman SHARIFA Primary Care Provider + [phone] Allergies No known active allergies Medications Chromium (CHROMIUM GTF) 200 MCG tabletIndication s:Obesity, Class II, BMI 35-39.9 Take 1 tablet by mouth 2 (Two) Times a Day With Meals. 9 Active spironolactone (ALDACTONE) 50 MG tablet 0 9 Active Vvcwxb-I30-Hpgjs nsic Factor (INTRINSI T39-TNRDKO) 800-500-20 MCG-MCG-MG tabletIndication s:Fatigue, unspecified type Take [...] to complete this topic Insurance [address] [employer] [facility] PPO [facility] [address] [employer] [facility] PPO Member Subscriber Plan / Payer (Ef fective 2017-Present) Name:Ynes PARSONS Relation to Subscriber:Child Name:ISABELLA HAHN Date of :1968 Address: [facility] [place] [address] Payer ID:[id number] (NAIC) Type:Not on file Address: [address] [place] [id number] Care Teams Head Stock Operator Relationship Specialty Start Date End Date Ruddy Guzman APRN [address] [place] [address] PCP - General Family Medicine 11/21/18
--- OUTSIDE RECORDS SUMMARY | 2025-04-11 10:38 | XMS_ITS | Clinical Summary ---
Author Organization [facility] Address [address] [place] [id number] Phone [email or web address] Care Team Providers Care Answering Service Operator Name Role Phone Unavailable Primary Care Provider [...] Health Maintenance Due Date Last Done Comments Cervical Cancer Screening Combo 2000 Dental Cleaning/Exam 2000 HIV Screening 2000 HPV / Cotest 2000 Hepatitis C Screening 2000 Pap Testing 2000 Polio Immunization (4 of 4 - 4-dose series) 2004 07/14/2001, 05/10/2001, 02/16/2001 HPV Immunization (2 - 3-dose series) 01/05/2018 [...]
[2025-04-11 20:10] LABS: Neisseria gonorrhoeae, NAA Negative (Negative)
== END 2025-04-10 23:59 | disposition home or self-care (01) ==
LOC: LAB.DROPOF 04-11 10:34
PROVIDERS: PCP Obstetrics & Gynecology; Visit Provider Obstetrics & Gynecology
DX: O98.519 Other viral diseases complicating pregnancy, unspecified trimester (principal); A63.0 Anogenital (venereal) warts; R31.9 Hematuria, unspecified; R39.9 Unspecified symptoms and signs involving the genitourinary system; B00.9 Herpesviral infection, unspecified; Z20.828 Contact with and (suspected) exposure to other viral communicable diseases
CPT/HCPCS: 87086; 87088; 87186; 87491; 87529; 87591; 87661; 87798; 87801

== ENCOUNTER 2025-06-05 12:43 | Outpatient (CLI) | payer BC, SELFPAY ==
--- OUTSIDE RECORDS SUMMARY | 2025-06-05 12:45 | XMS_ITS | Clinical Summary ---
Author Organization [facility] Address [address] [place] [address] Phone CareEverywhereSuppor Care Team Providers Care Accredited Farm Manager Name Role Phone Unavailable Primary Care Provider [...] Exam 02/20/2020 02/19/2019 Covid-19 Immunization ( season) 2025 Influenza Immunization (#1) 2025 Hepatitis B Immunization [...] patient's age to complete this topic Pneumococcal Immunization Aged Out No longer eligible based on patient's age to complete this topic Insurance OPT OUT NO COPAY NB
--- OUTSIDE RECORDS SUMMARY | 2025-06-05 12:45 | XMS_ITS | Clinical Summary ---
Author Organization [facility] Address [address] [place] [address] Care Team Providers Care Reliability Technician Name Role Phone Pcp, No Primary Care [...] D insufficiency 02/26/2019 Binge-eating disorder, mild 12/17/2018 Resolved Problems Problem Noted Date Diagnosed Date Resolved Date Fatigue 12/17/2018 05/25/2025 Immunizations Immunization Administration Dates Next Due DTaP [...] (4 - Tdap) 12/13/2019 07/14/2001, 05/10/2001, 02/16/2001 [id number] Vaccine ( - season) 2025 [facility]-Influenza Vaccine (#1) 2025 [facility]-Pap Smear 09/21/2025 [...] 1:30 PM EST) Case Report Cytology Case: [id number] Authorizing Provider: Elda Dixon MD Collected: 09/21/2022 1330 Ordering Location: Obstetrics & Gynecology Received: 09/22/2022 0911 First Screen: Hailee Harris Specimen: ThinPrep Pap Test, Liquid-Based Cervical/Vaginal, CERVICAL/VAGINAL 09/26/2022 12:29 PM EST [facility] Interpretation NEGATIVE FOR INTRAEPITHELIAL LESION OR MALIGNANCY 09/26/2022 12:29 PM EST [facility] at 1229 EST Specimen Adequacy Satisfactory for evaluation; endocervical/bashir sformation zone component present. Slide scanned and imaged by [employer] Imaging System with manual review of all selected ulloa. 09/26/2022 12:29 PM EST [facility] Cervical cytology is a screening test [...] results is suggested (please call Microbiology at [phone] for results). 09/26/2022 12:29 PM [facility] Menstrual Status Cyclic 09/26/19 12:29 PM [facility] History of Hysterectomy Not Applicable 09/26/2022 12:29 PM [facility] Contraceptive History control pills 09/26/2022 12:29 PM [facility] Screening Type Routine Screen 2022 12:29 PM [facility] High Risk? No 09/26/2022 12:29 PM [facility] HPV Testing Requested? Request HPV testing if ASCUS or LSIL. 09/26/2022 12:29 PM [facility] Previous Cancer History No 09/26/2022 12:29 PM [facility] Clinical Information Z30.41 - Encounter for surveillance of contraceptive pills [ICD-10-CM] 09/26/2022 12:29 PM [facility] Last Menstrual Period 09/21/2022 09/26/2022 12:29 PM [facility] Swab Vaginal and cervical cytologic material / Unknown Non-blood Collection / Unknown 09/21/2022 1:30 PM EST 09/22/2022 9:11 AM EST Elda Dixon MD LAB CYTOLOGY ORDERABLES Final Result [facility] [address] [place] [address] from Last 3 Months or Most Recently Relevant to Health Maintenance Insurance Care Teams Reliability Technician Relationship Specialty Start Date End Date Pcp, No [address] [place] [address] PCP - General Family Medicine 10/06/21
--- OUTSIDE RECORDS SUMMARY | 2025-06-05 12:45 | XMS_ITS | Clinical Summary ---
Author Organization [facility] yste Address [address] [place] [address] Care Team Providers Care Tubular Splitting Machine Tender Name Role Phone Ruddy Guzman SHARIFA Primary Care Provider + [phone] Allergies No known active allergies Medications Chromium (CHROMIUM GTF) 200 MCG tabletIndication s:Obesity, Class II, BMI 35-39.9 Take 1 tablet by mouth 2 (Two) Times a Day With Meals. 9 Active spironolactone (ALDACTONE) 50 MG tablet 0 9 Active Byfkrh-C69-Utcgp nsic Factor (INTRINSI J14-BJEVUZ) 800-500-20 MCG-MCG-MG tabletIndication s:Fatigue, unspecified type Take [...] 12/17/2018 TDAP/TD VACCINES (1 - Tdap) 12/13/2019 INFLUENZA VACCINE 04/04/2025 MENINGOCOCCAL B VACCINE Aged Out No l onger eligible based on patient's age to complete this topic Pneumococcal Vaccine 0-49 Aged Out No longer eligible based on patient's age to complete this topic Insurance [address] [place] [id number] [facility] [employer] [facility] PPO [employer] [facility] PPO Care Teams Tubular Splitting Machine Tender Relationship Specialty Start Date End Date Ruddy Guzman APRN [address] [place] [place] [address] PCP - General Family Medicine 11/21/18
--- NOTE | 2025-06-05 13:00 | US_ITS ---
PROCEDURE INFORMATION: Exam: US Right Breast, Complete US Left Breast, Complete Exam date and time: 06/05/2025 1:14 PM Age: 24 years old Clinical indication: Breast pain; Bilateral; Additional info: Bilateral breast pain TECHNIQUE: Imaging protocol: Complete ultrasound of all four quadrants of the right breast and the retroareolar regions, including ultrasound of the axilla when performed. Complete ultrasound of all four quadrants of the left breast and the retroareolar regions, including ultrasound of the axilla when performed. COMPARISON: No relevant prior studies available. FINDINGS: ULTRASOUND: Breast ultrasound findings: Complete scanning of the left breast is performed. There is a benign intramammary lymph node at the superficial aspect of the left breast at 2 o'clock, 6 cm from the nipple. There is no dominant or suspicious mass, shadowing, or distortion. No axillary adenopathy. Complete scanning of the right breast is performed. There is no underlying mass, cystic abnormality, shadowing, distortion, or axillary adenopathy. IMPRESSION: 1. No sonographic evidence of malignancy. Continued clinical monitoring of the patient's breast pain is recommended. 2. Annual bilateral mammographic screening is recommended to commence at the age of 40 unless otherwise clinically indicated. ASSESSMENT: BI-RADS Category 2: Benign.
== END 2025-06-05 23:59 | disposition home or self-care (01) ==
LOC: RAD 12:43
PROVIDERS: PCP Nurse Practitioner Family; Visit Provider Obstetrics & Gynecology
DX: N64.4 Mastodynia (principal)
CPT/HCPCS: 76641